=== PATIENT | male | born 1960 | race Caucasian/White ===

== ENCOUNTER 2018-02-04 11:45 | Day surgery (SDC) | payer BC, OTHER ==
[2018-02-01 08:41] VITALS: BMI 33.6
--- NOTE | 2018-02-04 07:28 | P.GSHP ---
History of Present Illness H&P Date: 02/04/18 CHIEF COMPLAINT: GERD and diverticulitis HISTORY OF PRESENT ILLNESS: The patient is a 57-year-old male who presents with gastroesophageal reflux disease and diverticulitis. Upper and lower endoscopy were offered for further evaluation and management. PAST MEDICAL HISTORY: Please see list. PAST SURGICAL HISTORY: Please see list. MEDICATIONS: Please see list. ALLERGIES: Please see list. SOCIAL HISTORY: No illicit drug use FAMILY HISTORY: No reports of Crohn disease or ulcerative colitis. REVIEW OF ORGAN SYSTEMS: CONSTITUTIONAL: No reports of fevers or chills. GI: Denies any blood in stools or constipation. PHYSICAL EXAM: VITAL SIGNS: Stable GENERAL: Well-developed pleasant in no acute distress. HEENT: No scleral icterus. Extraocular movements grossly intact. Moist buccal mucosa. NECK: Supple without lymphadenopathy. CHEST: Unlabored respirations. Equal bilateral excursions. CARDIOVASCULAR: Regular rate and rhythm. Distal 2+ pulses. ABDOMEN: Soft, nondistended. MUSCULOSKELETAL: No clubbing, cyanosis, or edema. ASSESSMENT: 1. Gastroesophageal reflux disease 2. Diverticulitis PLAN: 1. Recommend proceeding with an upper and lower endoscopy Past Medical History Past Medical History: Cancer, Chest Pain / Angina, GERD/Reflux, Hypertension, Osteoarthritis (OA) Additional Past Medical History / Comment(s): Hx testicular cancer, skin cancer , diverticulitis, "irregular heartbeat", recent episode of chest pain and was diagnosed with a hiatal hernia. History of Any Multi-Drug Resistant Organisms: None Reported Past Surgical History: Orthopedic Surgery Additional Past Surgical History / Comment(s): Right testicle removed, left knee surgery, left knee arthroscopy, right elbow surgery, skin cancer removed from back and scalp, COLONOSCOPY. Past Anesthesia/Blood Transfusion Reactions: No Reported Reaction Past Psychological History: No Psychological Hx Reported Smoking Status: Current every day smoker Past Alcohol Use History: Occasional Additional Past Alcohol Use History / Comment(s): Has been smoking for 15 yrs, down to 1-2 cigarettes per day. Past Drug Use History: None Reported - Past Family History Mother Family Medical History: No Reported History Medications and Allergies Home Medications Medication Instructions Recorded Confirmed Type Metoprolol Succinate (ER) [Toprol 50 mg PO QAM 07/25/15 02/01/18 History XL] Pantoprazole [Protonix] 40 mg PO DAILY 02/01/18 02/01/18 History metroNIDAZOLE [Flagyl] 500 mg PO Q8HR 02/01/18 02/01/18 History Allergies Allergy/AdvReac Type Severity Reaction Status Date / Time Penicillins Allergy Unknown Verified 02/01/18 08:28 Childhood
[~2018-02-04 11:45] MED LIST: LACTATED RINGERS 1,000 ML IV SCH
[2018-02-04] MEDS ORDERED: LIDOCAINE 1% 20 ML VIAL (10MG/ML) FOR IV START INTRADERMA ONE (12:10)
[2018-02-04 12:17] VITALS: RESP 16; TEMP 98.4
[2018-02-04] MEDS ORDERED: LIDOCAINE 1% INJ 10MG/ML (20 ML MDV) ONE (12:36)
[2018-02-04] MEDS ORDERED: PROPOFOL 10 MG/ML 20 ML VIAL IV ONE (12:36)
--- NOTE | 2018-02-04 13:21 | P.PCN ---
Date of Procedure: 02/04/18 Description of Procedure: PREOPERATIVE DIAGNOSIS: Gastroesophageal reflux disease. POSTOPERATIVE DIAGNOSIS: Gastritis. Gastroesophageal reflux disease. Duodenitis Erosive esophagitis Diaphragmatic hiatal hernia without obstruction. OPERATION: Esophagogastroduodenoscopy with biopsies along antrum, distal esophagus, and duodenum SURGEON: Lulu Fisher MD ANESTHESIA: MAC. INDICATIONS: The patient is a 57-year-old male who presents with a history of reflux disease. Benefits and risks of the procedure were described. Informed consent was obtained. DESCRIPTION: The patient was brought into the endoscopy suite and laid in the left lateral decubitus position. An Olympus gastroscope was passed along the posterior oropharynx down to the distal esophagus where the squamocolumnar junction was encountered at 40 cm from the incisors. The stomach was entered and no bile reflux was found. Additional findings are listed below. Biopsies with cold forceps were obtained of the antrum. The first through third portion of the duodenum was examined and unremarkable. Retroflexion of the scope confirmed Hill grade 4 lower esophageal valve. The squamocolumnar junction demonstrated acute LA grade C erosive esophagitis. The stomach was desufflated. The patient tolerated the procedure well. FINDINGS: Squamocolumnar junction 40 cm from the incisors. Diaphragmatic hiatus at 40 cm. Hill grade 4 lower esophageal valve. LA grade C erosive esophagitis. Active duodenitis Active gastritis Severe erosive esophagitis RECOMMENDATIONS: Start medical therapy. Further recommendations pending results of pathology report. Upper endoscopy as needed. Will benefit from antireflux surgical procedure
[2018-02-04 13:24] VITALS: BP 114/78; PULSE 60
--- NOTE | 2018-02-04 13:25 | P.PCN ---
Date of Procedure: 02/04/18 Description of Procedure: PREOPERATIVE DIAGNOSIS: Diverticulitis Change in bowel habits POSTOPERATIVE DIAGNOSIS: Diverticulitis Change in bowel habits Rectal adenoma Sigmoid colon polyp Diverticulosis at sigmoid colon History of sigmoid colectomy OPERATION: Colonoscopy to the ileocecal valve and appendiceal orifice. Colonoscopy with hot snare polypectomies Colonoscopy with cold forceps biopsies. SURGEON: Lulu Fisher MD. ANESTHESIA: MAC. INDICATIONS: The patient is a 57-year-old male who presents with symptomatic diverticulitis. Benefits and risks were described and informed consent was obtained. DESCRIPTION OF PROCEDURE: The patient had undergone Gatorade, MiraLAX and Dulcolax prep. He had been brought into the operating room and laid in the left lateral decubitus position. After adequate intravenous sedation, the rectum was examined with 2% lidocaine jelly. No external hemorrhoids were encountered. The rectal tone was within normal limits. No lesions were palpated in the rectal vault. An Olympus colonoscope was advanced until the ileocecal valve and appendiceal orifice were clearly viewed. The prep was fair requiring moderate irrigation to visualize the mucosal harden. At 20 cm from the anal verge, a remnant sigmoid diverticulosis pocket was found along his previous anastomosis without diverticulitis. Colonic polyps were found and cold forcep biopsy or snare polypectomy. No evidence of focal colitis was found. Retroflexion of the scope demonstrated grade 1 internal hemorrhoids without active bleeding or inflammation. The colon was desufflated. The patient had tolerated the procedure well. Withdrawal time was over 6 minutes. FINDINGS: Internal hemorrhoids, grade 1 No external hemorrhoids No arteriovenous malformations At 20 cm from the anal verge, a remnant sigmoid diverticulosis pocket was found along his previous anastomosis without diverticulitis. Removal of 2 polyps: - Snare polypectomy 10 cm from the anal verge, 5 mm tubulovillous adenoma polyp. - Cold forceps biopsy at 30 cm from the anal verge, 4 mm polyp. No focal colitis. RECOMMENDATIONS: Repeat colonoscopy 5 years, 2022 Plan - Discharge Summary New Discharge Prescriptions: No Action Metoprolol Succinate (ER) [Toprol XL] 50 mg PO QAM metroNIDAZOLE [Flagyl] 500 mg PO Q8HR Pantoprazole [Protonix] 40 mg PO DAILY Discharge Medication List Metoprolol Succinate (ER) [Toprol XL] 50 mg PO QAM 07/25/15 [History] Pantoprazole [Protonix] 40 mg PO DAILY 02/01/18 [History] metroNIDAZOLE [Flagyl] 500 mg PO Q8HR 02/01/18 [History] Patient Instructions/Handouts: *[facility] - (Anesthesia) Endoscopy Discharge Instructions, Colonoscopy (GEN), Diverticulosis (GEN), Upper Endoscopy (GEN), Colorectal Polyps (GEN) Discharge Disposition: HOME SELF-CARE
--- NOTE | 2018-02-08 14:22 | CDI ---
Date:02/08/18 CDS/Lpta Name: Camila Vale Phone: If any questions, call Priscilla Ram[facility] at [phone] Patient Name: Be Vital Admit Date: 02/04/18 Discharge Date: 02/05/08 ATTENTION: The [facility] Staff appreciate your assistance in clarifying documentation. Please respond to the clarification below the line at the bottom and electronically sign. The [facility] staff will review the response and follow-up if needed. Please note: Queries are made part of the Legal Health Record. If you have any questions, please contact the [facility] Check Out. Dear Dr. Fisher, Please provide clarification as to the location of the polyps removed. Please clarify the specific location of the polyps removed, Sigmoid colon, transverse colon, descending colon, etc. Thank you for your kind consideration. PREOPERATIVE DIAGNOSIS: Diverticulitis Change in bowel habits POSTOPERATIVE DIAGNOSIS: Diverticulitis Change in bowel habits Rectal adenoma Sigmoid colon polyp Diverticulosis at sigmoid colon History of sigmoid colectomy Please see in post-op diagnosis that addresses location of polyps. KM 02/08/18 @21:36 MTDD
== END 2018-02-04 14:01 | disposition home or self-care (01) ==
LOC: ORWHC2ENDO 11:45
PROVIDERS: ATTEND Surgery Plastic and Reconstructive Surgery
DX: K29.50 Unspecified chronic gastritis without bleeding (principal); K20.0 Eosinophilic esophagitis; K21.9 Gastro-esophageal reflux disease without esophagitis; K29.80 Duodenitis without bleeding; K44.9 Diaphragmatic hernia without obstruction or gangrene; D12.8 Benign neoplasm of rectum; K63.5 Polyp of colon; K57.30 Diverticulosis of large intestine without perforation or abscess without bleeding; K64.0 First degree hemorrhoids; Z98.0 Intestinal bypass and anastomosis status; I10 Essential (primary) hypertension; M19.90 Unspecified osteoarthritis, unspecified site; F17.210 Nicotine dependence, cigarettes, uncomplicated; Z90.79 Acquired absence of other genital organ(s); Z85.47 Personal history of malignant neoplasm of testis; Z79.2 Long term (current) use of antibiotics; Z79.899 Other long term (current) drug therapy; Z88.0 Allergy status to penicillin
CPT/HCPCS: 88305; 45380; 45385; 43239; J2001; J2704

== ENCOUNTER → 2018-02-25 | Outpatient (CLI) | payer OTHER ==
--- NOTE | 2018-02-25 15:06 | NM ---
EXAMINATION TYPE: NM hepatobiliary w EF DATE OF EXAM: 02/25/2018 COMPARISON: NONE HISTORY: Pain TECHNIQUE: After the intravenous administration of 5.08 mCi Tc 99m Mebrofenin hepatobiliary scintigra phy is performed. Immediate images post injection. FINDINGS: There is satisfactory initial accumulation of tracer by the liver. The gallbladder is visualized wit hin 12 minutes. The small bowel activity is noted within 12 minutes. At one hour 8 ounces of oral e nsure plus is given to mimic CCK and gallbladder ejection fraction is calculated at 88% %. IMPRESSION: Gallbladder ejection fraction suggests hypercontractile state.
== END | disposition home or self-care (01) ==
LOC: RADNMMAIN 12:50
PROVIDERS: ATTEND Surgery Plastic and Reconstructive Surgery
DX: K81.9 Cholecystitis, unspecified (principal); Z88.0 Allergy status to penicillin
CPT/HCPCS: 78226; A9537

== ENCOUNTER → 2018-05-05 | Outpatient (CLI) | payer OTHER ==
[2018-05-05 14:38] LABS: HCT 48.9 % (39.0-53.0); HGB 16.6 gm/dL (13.0-17.5); MCH 31.6 pg (25.0-35.0); MCHC 33.9 g/dL (31.0-37.0); MCV 93.1 fL (80.0-100.0); Platelet Count 193 k/uL (150-450); RBC 5.25 m/uL (4.30-5.90); RDW 12.7 % (11.5-15.5); WBC 7.3 k/uL (3.8-10.6)
== END ==
LOC: LABPAT 13:24
PROVIDERS: ATTEND Anesthesiology
DX: Z01.812 Encounter for preprocedural laboratory examination (principal); K44.9 Diaphragmatic hernia without obstruction or gangrene
CPT/HCPCS: 36415; 85027

== ENCOUNTER 2018-05-12 10:32 | Inpatient (IN) | payer OTHER ==
[2018-05-05 08:41] VITALS: BMI 33.6
--- NOTE | 2018-05-12 05:22 | P.GSHP ---
History of Present Illness H&P Date: 05/12/18 CHIEF COMPLAINT: Hiatal hernia with gastroesophageal reflux disease. HISTORY OF PRESENT ILLNESS: The patient is a 57-year-old male who presents with hiatal hernia. He has completed an esophageal manometry including upper endoscopy workup. Now he presents for surgical intervention. PAST MEDICAL HISTORY: Please see list. PAST SURGICAL HISTORY: Please see list. MEDICATIONS: Please see list. ALLERGIES: Please see list. SOCIAL HISTORY: No illicit drug use FAMILY HISTORY: No reports of Crohn disease or ulcerative colitis. REVIEW OF ORGAN SYSTEMS: CONSTITUTIONAL: No reports of fevers or chills. GI: Denies any blood in stools or constipation. PHYSICAL EXAM: VITAL SIGNS: Stable GENERAL: Well-developed pleasant and in no acute distress. HEENT: No scleral icterus. Extraocular movements grossly intact. Moist buccal mucosa. NECK: Supple without lymphadenopathy. CHEST: Unlabored respirations. Equal bilateral excursions. CARDIOVASCULAR: Regular rate and rhythm. Distal 2+ pulses. ABDOMEN: Soft, nondistended. No peritoneal signs. MUSCULOSKELETAL: No clubbing, cyanosis, or edema. SKIN: Well-perfused. Good skin turgor. MANOMETRY: Shows no evidence of achalasia or scleroderma. ASSESSMENT: 1. Diaphragmatic hiatal hernia with severe gastroesophageal reflux disease. PLAN: 1. Recommend proceeding with a robotic paraesophageal hiatal hernia with possible Yue and mesh placement. 2. Benefits and risks of surgical intervention was discussed including possibility of open technique. 3. Inpatient hospitalization recommended of 2 nights 4. DVT prophylaxis. 5. Antibiotic prophylaxis. Past Medical History Past Medical History: Cancer, Chest Pain / Angina, GERD/Reflux, Hypertension, Osteoarthritis (OA) Additional Past Medical History / Comment(s): Hx testicular cancer, skin cancer , diverticulitis, "irregular heartbeat", recent episode of chest pain and was diagnosed with a hiatal hernia. History of Any Multi-Drug Resistant Organisms: None Reported Past Surgical History: Orthopedic Surgery Additional Past Surgical History / Comment(s): Right testicle removed, left knee surgery, left knee arthroscopy, right elbow surgery, skin cancer removed from back and scalp, COLONOSCOPY., EGD Past Anesthesia/Blood Transfusion Reactions: No Reported Reaction Smoking Status: Current every day smoker - Past Family History Mother Family Medical History: No Reported History Medications and Allergies Home Medications Medication Instructions Recorded Confirmed Type Metoprolol Succinate (ER) [Toprol 50 mg PO QAM 07/25/15 05/05/18 History XL] Allergies Allergy/AdvReac Type Severity Reaction Status Date / Time Penicillins Allergy Unknown Verified 02/04/18 12:00 Childhood
[~2018-05-12 10:32] MED LIST changes: +DEXAMETHASONE SOD PHOSPHATE 10 MG/ML 1 ML VIAL IV ONE; +HEPARIN SODIUM,PORCINE 5,000 UNIT/ML 1 ML VIAL SQ ONE; +HYDROmorphone 0.5 MG/0.5 ML SYRINGE IVP PRN; -LACTATED RINGERS 1,000 ML IV SCH; +LIDOCAINE 1% 20 ML VIAL (10MG/ML) FOR IV START INTRADERMA PRN; +MIDAZOLAM 2 MG/2 ML VIAL IV PRN; +ONDANSETRON 4 MG/2 ML VIAL IVP ONE; +SCOPOLAMINE 1.5MG/72HR PATCH TRANSDERM ONE; +ceFAZolin IN SWFI 2 GM/20 ML SYRINGE IVP ONE
[2018-05-12 11:15] VITALS: RESP 16
[2018-05-12] MEDS: LACTATED RINGERS 1,000 ML IV SCH ×2 (11:33→15:51)
[2018-05-12 11:40] LABS: Albumin 4.1 g/dL (3.5-5.0); Calcium 9.5 mg/dL (8.4-10.2); Potassium 4.7 mmol/L (3.5-5.1); Total Bilirubin 0.4 mg/dL (0.2-1.3); Total Protein 6.9 g/dL (6.3-8.2)
[2018-05-12] MEDS ORDERED: ROCURONIUM BROMIDE 10 MG/ML 10 ML VIAL IV ONE (12:20)
[2018-05-12] MEDS ORDERED: ceFAZolin IN SWFI 2 GM/20 ML SYRINGE IVP ONE (12:20)
[2018-05-12] MEDS ORDERED: ePHEDrine SULFATE/0.9% NACL/PF 50 MG/5 ML SYRINGE IV ONE (12:20)
[2018-05-12] MEDS ORDERED: PROPOFOL 10 MG/ML 20 ML VIAL IV ONE (12:20)
[2018-05-12] MEDS ORDERED: MIDAZOLAM 2 MG/2 ML VIAL ONE (12:20)
[2018-05-12] MEDS ORDERED: LIDOCAINE 1% INJ 10MG/ML (20 ML MDV) ONE (12:20)
[2018-05-12] MEDS ORDERED: GLYCOPYRROLATE 0.2 MG/ML 2 ML VIAL ONE (12:20)
[2018-05-12] MEDS ORDERED: SUCCINYLCHOLINE CHLORIDE 100 MG/5 ML SYR IV ONE (12:20)
[2018-05-12] MEDS ORDERED: KETOROLAC 30 MG/ML 1 ML VIAL ONE (12:20)
[2018-05-12] MEDS ORDERED: NEOSTIGMINE 1 MG/ML 10 ML VIAL ONE (12:20)
[2018-05-12] MEDS ORDERED: fentaNYL (PF) 50 MCG/ML 2 ML AMP ONE (12:20)
[2018-05-12] MEDS ORDERED: BUPIVACAIN-EPI 0.25%-1:200,000 30 ML VIAL SQ ONE (12:37)
[2018-05-12] MEDS ORDERED: LACTATED RINGERS 1,000 ML IV ONE (13:15)
[2018-05-12] MEDS ORDERED: NALOXONE 0.4 MG/ML 1 ML VIAL IV PRN (14:57)
[2018-05-12] MEDS ORDERED: ACETAMINOPHEN IV (For NPO) 1,000 MG in EMPTY BAG 1 BAG IVPB ONE (14:57)
[2018-05-12] MEDS ORDERED: HYDROcodone/APAP 15 ML SOLUTION PO PRN (14:57)
[2018-05-12] MEDS ORDERED: diphenhydrAMINE 50 MG/ML 1 ML VIAL IVP PRN (14:57)
--- NOTE | 2018-05-12 15:04 | P.OP ---
Date of Procedure: 05/12/18 Description of Procedure: SURGEON: DOMINGO WHELAN MD PREOPERATIVE DIAGNOSES: 1. Gastroesophageal reflux disease. 2. Paraesophageal hiatal hernia, midline. 3. Epigastric abdominal pain 4. Hypertensive heart disease 5. Personal history of sigmoid diverticulitis 6. Angina POSTOPERATIVE DIAGNOSES: 1. Gastroesophageal reflux disease. 2. Paraesophageal hiatal hernia, midline, incarcerated 4 x 4 cm 3. Epigastric abdominal pain 4. Hypertensive heart disease 5. Personal history of sigmoid diverticulitis 6. Angina OPERATION: 1. Robotic-assisted da Bakari Xi laparoscopic reduction and repair of incarcerated midline diaphragmatic paraesophageal hiatal hernia, 4 x 4 cm, with [place] Biopatch A 8 x 8 cm. 2. Intraoperative esophagogastroduodenoscopy ANESTHESIA: General with local anesthetic. ESTIMATED BLOOD LOSS: 5 mL SPECIMENS REMOVED: None. COMPLICATIONS: None. FINDINGS: 1. Hiatal hernia, 4 x 4 cm 2. 4 x 4 cm paraesophageal incarcerated diaphragmatic hiatal hernia 3. [place] Biopatch A onlay mesh placed. 4. Intra-abdominal esophageal length 2 cm obtained INDICATIONS: The patient is a 57-year-old male who presents with gastroesophageal reflux disease from a symptomatic diaphragmatic hiatal hernia. Preoperative workup including upper endoscopy demonstrated a Hill grade 4 lower esophageal valve. He completed an esophageal manometry. Given the severity of symptoms, he had elected for surgical intervention. Benefits and risks including bleeding, infection, recurrence, dysphagia, injury to the lung, need for further surgery was described at length. Informed consent was obtained. DESCRIPTION: The patient was brought into the operating room and placed in supine position. Preoperatively he had received heparin subcutaneously for DVT prophylaxis. After general induction, the abdomen was prepped and draped in standard sterile fashion. The patient had previously voided prior to coming to the operating room. Ioban draping was placed along the abdomen. A timeout protocol was confirmed with the surgical team, for which the patient's name, procedure to be performed including DVT prophylaxis with bilateral SCDs, and preoperative antibiotics were also confirmed. A robotic da Bakari Xi system was prepped and primed. At 15 cm from the xiphoid to just below the umbilicus, proposed port sites were marked with indelible marker along the left axillary line, left mid-clavicular line with each ports were marked 10 cm from each other. A 5 mm 0 degrees laparoscopic trocar entry was performed along the left upper quadrant. The abdomen was insufflated to 15 mmHg pressure he tolerated well. Diagnostic laparoscopy demonstrated no injury to bowel, viscera, or mesentery. The liver surface was unremarkable for fatty liver disease. No injury had occurred to the small bowel or viscera. Next, one 8 mm robotic port was placed along the right upper abdomen. An 8-mm port was were placed along the left lateral abdominal wall. The camera 8-mm port was maintained along the epigastrium via the hernia defect. Another 12 mm port was placed along the left upper abdominal wall after exchanging the 5 mm port. Please note that the ports were placed at least 20 cm away from the target anatomy. Care was taken to check that each robotic arm were safely away from collision with the bed or the patient. At the epigastrium, a medium sized Geovanni liver retractor was placed under direct visualization with the Iron Director Ehs placed under the right shoulder of the patient. All robotic arms were used. The patient was repositioned in reverse Trendelenburg position at 14-degrees after lowering the bed. The robot was docked above the left side of the patient. Using a grasper for arm 3, a grasper for arm 1, including vessel sealer for arm 2, the robotic system was docked and primed as described. Instruments were interchanged by the logging assistant. I had sat at the console. The gastrohepatic ligament was cleaved using a vessel sealer. Next, the phrenoesophageal ligament was mobilized and the distal esophagus was mobilized circumferentially. The left and right crura was identified. The hiatal hernia sac was incarcerated into the mediastinum. Circumferentially, the hernia sac was dissected free from the hiatus with reduction of the proximal pole the stomach into the abdominal cavity. Care was taken to avoid any gastrotomy to the upper pole of the stomach. The measured defect was consistent with 4 cm axial length and 4 cm in width. After dissection, the distal esophagus of over 2 cm was brought into the abdominal cavity. Once the hiatus and crura was dissected, 2-0 VLOC suture was placed to reapproximate the diaphragmatic hiatus anteriorly. To buttress the repair, a [place] Biopatch A was prepared along the back table and cut in half of a luevano-hole fashion as to reinforce the repair as an underlay. The mesh was placed along the crural repair and tagged using horizontal mattress sutures using 2-0 VLOC. I went to the head of the bed to perform intraoperative esophagogastroduodenoscopy. I went to the head of the bed to perform intraoperative esophagogastroduodenoscopy. An Olympus gastroscope was passed through posterior oropharynx. Erosive esophagitis LA grade A was confirmed. The stomach was entered. Retroflexion of the scope confirmed a Hill grade 1 lower esophageal valve. The stomach had been desufflated. No evidence of leaks were found either of the mucosal defects of the esophagus or stomach. This concluded the endoscopic portion of the case. The robot was undocked from the patient. I re-scrubbed into the case. All instruments and pneumoperitoneum were evacuated from the abdominal cavity. Incisions were reapproximated using 4-0 Monocryl in an interrupted subcuticular fashion. Liquid glue was applied to the skin. Local anesthetic was infiltrated in all wounds for postop analgesia. Multiple intra-abdominal films were obtained. At the end of the procedure, needle, sponge, and instrument count was verified correct by the dental service technician. The patient had tolerated the procedure well and was taken to the postanesthesia unit in stable condition. Intraoperative films were reviewed with the patient's family who was pleased with the level of care. Console time 59 minutes
[2018-05-12] MEDS: HYDROmorphone 1 MG/ML 1 ML SYRINGE IVP PRN ×3 (15:31→23:34)
[2018-05-12] MEDS: 0.9% NACL WITH KCL 20 MEQ/L 1,000 ML IV SCH (15:32)
[2018-05-12] MEDS: ALBUTEROL NEBULIZED 2.5 MG/3 ML INHALATION SCH ×2 (16:39→21:12)
--- NOTE | 2018-05-12 17:19 | P.PN ---
Progress Note - Text Progress Note Date: 05/12/18 Patient seen and evaluated postop and is doing very well. Post discharge instructions reviewed with discharge after esophogram and follow-up in the office next week Wednesday.
[2018-05-12] MEDS: METOCLOPRAMIDE 5 MG/ML 2 ML VIAL IVP SCH (17:49)
[2018-05-12] MEDS: KETOROLAC 30 MG/ML 1 ML VIAL IVP SCH (17:49)
[2018-05-12] MEDS: SIMETHICONE 40 MG/0.6 ML DROPS 2,000 MG/30 ML BOTTLE PO SCH (17:50)
[2018-05-12] MEDS: ONDANSETRON 4 MG/2 ML VIAL IVP SCH (17:50)
[2018-05-13] MEDS: KETOROLAC 30 MG/ML 1 ML VIAL IVP SCH ×3 (02:03→13:50)
[2018-05-13] MEDS: ONDANSETRON 4 MG/2 ML VIAL IVP SCH ×3 (02:04→12:07)
[2018-05-13] MEDS: METOCLOPRAMIDE 5 MG/ML 2 ML VIAL IVP SCH ×3 (02:04→13:50)
[2018-05-13] MEDS: SIMETHICONE 40 MG/0.6 ML DROPS 2,000 MG/30 ML BOTTLE PO SCH ×3 (02:05→13:50)
[2018-05-13] MEDS: 0.9% NACL WITH KCL 20 MEQ/L 1,000 ML IV SCH ×2 (02:24→10:03)
[2018-05-13] MEDS: HYDROmorphone 1 MG/ML 1 ML SYRINGE IVP PRN (04:21)
[2018-05-13] MEDS ORDERED: 0.9% NACL WITH KCL 20 MEQ/L 1,000 ML IV SCH (08:00)
[2018-05-13] MEDS ORDERED: PANTOPRAZOLE 40 MG/10 ML VIAL IV SCH (09:00)
[2018-05-13] MEDS ORDERED: METOPROLOL SUCCINATE (ER) 50 MG TAB.ER.24H PO SCH (09:00)
[2018-05-13] MEDS ORDERED: ENOXAPARIN 40 MG/0.4 ML SYRINGE SQ SCH (09:00)
[2018-05-13] MEDS: ALBUTEROL NEBULIZED 2.5 MG/3 ML INHALATION SCH ×3 (09:30→15:55)
[2018-05-13 10:15] LABS: Anion Gap 7 mmol/L; Blood Urea Nitrogen 15 mg/dL (9-20); Calcium 8.4 mg/dL (8.4-10.2); Carbon Dioxide 23 mmol/L (22-30); Chloride 106 mmol/L (98-107); Magnesium 1.7 mg/dL (1.6-2.3); Phosphorus 3.3 mg/dL (2.5-4.5); Potassium 4.6 mmol/L (3.5-5.1); Sodium 136 mmol/L (137-145)
[2018-05-13 10:16] LABS: Basophils % (A) 0 %; Eosinophils % (A) 0 %; HCT 38.9 % (39.0-53.0); Lymphocytes # (A) 1.3 k/uL (1.0-4.8); Lymphocytes % (A) 14 %; MCH 31.7 pg (25.0-35.0); MCHC 33.3 g/dL (31.0-37.0); Mean Platelet Volume 8.2; Monocytes # (A) 0.7 k/uL (0-1.0); Monocytes % (A) 7 %; Neutrophils # (A) 7.3 k/uL (1.3-7.7); Neutrophils % (A) 77 %; Platelet Count 161 k/uL (150-450); RBC 4.09 m/uL (4.30-5.90); WBC 9.5 k/uL (3.8-10.6)
[2018-05-13] MEDS ORDERED: diphenhydrAMINE 25 MG CAP PO PRN (13:12)
[2018-05-13 14:41] VITALS: TEMP 98
[2018-05-13 14:46] VITALS: BP 110/70; PULSE 56
--- NOTE | 2018-05-13 15:02 | FL ---
EXAMINATION TYPE: FL esophagus cervic/pharynx DATE OF EXAM: 05/13/2018 HISTORY: Post David fundoplication COMPARISON: NONE TECHNIQUE: Single contrast Isovue 300 FINDINGS: Overhead radiographs were obtained. No free air is evident. No suspicious extravasation is evident FL Fluoroscopy: Real-time observation was performed. At the gastroesophageal junction has mild chest since the passing into the stomach. No suspicious stenosis is evident. No hiatal hernia is evident. IMPRESSION: 1. Mild hesitancy passing through the David fundoplication. 2. No suspicious changes to suggest extravasation.
[2018-05-14] MEDS ORDERED: BISACODYL 5 MG TABLET.DR PO PRN (08:00)
--- NOTE | 2018-05-14 19:05 | P.DS ---
Providers Date of admission: 05/12/18 10:32 Expected date of discharge: 05/13/18 Attending physician: Lulu Fisher Primary care physician: Amirah El - Discharge Diagnosis(es) (1) Gastroesophageal reflux disease due to diaphragmatic hernia Status: Acute (2) Hypertensive heart disease Status: Acute (3) Hiatal hernia Status: Acute Hospital Course: POSTOPERATIVE DIAGNOSES: 1. Gastroesophageal reflux disease. 2. Paraesophageal hiatal hernia, midline, incarcerated 4 x 4 cm 3. Epigastric abdominal pain 4. Hypertensive heart disease 5. Personal history of sigmoid diverticulitis 6. Angina COURSE: The patient is a 57-year-old male who presents with gastroesophageal reflux disease from a symptomatic diaphragmatic hiatal hernia. Preoperative workup including upper endoscopy demonstrated a Hill grade 4 lower esophageal valve. He completed an esophageal manometry. Given the severity of symptoms, he had elected for surgical intervention. Benefits and risks including bleeding, infection, recurrence, dysphagia, injury to the lung, need for further surgery was described at length. Informed consent was obtained. Postprocedure, he has been tolerating diet. Denies any nausea and vomiting. Pain was well-controlled. Post discharge diet reviewed including liquid only. No straws or carbonated beverages advised. Follow-up in the office in 5 days. Pertinent Studies: Esophagram negative for leaks or acute obstruction Procedures: OPERATION: 1. Robotic-assisted da Bakari Xi laparoscopic reduction and repair of incarcerated midline diaphragmatic paraesophageal hiatal hernia, 4 x 4 cm, with [place] Biopatch A 8 x 8 cm. 2. Intraoperative esophagogastroduodenoscopy ANESTHESIA: General with local anesthetic. ESTIMATED BLOOD LOSS: 5 mL SPECIMENS REMOVED: None. COMPLICATIONS: None. FINDINGS: 1. Hiatal hernia, 4 x 4 cm 2. 4 x 4 cm paraesophageal incarcerated diaphragmatic hiatal hernia 3. [place] Biopatch A onlay mesh placed. 4. Intra-abdominal esophageal length 2 cm obtained Patient Condition at Discharge: Stable Plan - Discharge Summary Discharge Rx Participant: Yes New Discharge Prescriptions: New HYDROcodone/APAP 5-325MG [[place] 5-325] 1 tab PO Q6HR PRN 3 Days #12 tab PRN Reason: Pain Simethicone 40 mg/0.6 ml Drops [Mylicon Drops] 40 mg PO Q6HR PRN #30 ml PRN Reason: Abdominal Distention No Action Metoprolol Succinate (ER) [Toprol XL] 50 mg PO QAM Discharge Medication List Metoprolol Succinate (ER) [Toprol XL] 50 mg PO QAM 07/25/15 [History] HYDROcodone/APAP 5-325MG [[place] 5-325] 1 tab PO Q6HR PRN 3 Days #12 tab [Rx] Simethicone 40 mg/0.6 ml Drops [Mylicon Drops] 40 mg PO Q6HR PRN #30 ml [Rx] Follow up Appointment(s)/Referral(s): Lulu Fisher MD [STAFF PHYSICIAN] - 05/17/18 4:15 am Patient Instructions/Handouts: Laparoscopic Hiatal Hernia Repair (DC) Activity/Diet/Wound Care/Special Instructions: May shower. No bath tub soaks. No straws. No carbonated beverages. Liquid diet only for 2 weeks. No lifting over 4 pounds in 4 weeks. Protein shakes 3 times daily. Discharge Disposition: HOME SELF-CARE
== END 2018-05-13 17:02 | disposition home or self-care (01) | DRG 327 ==
LOC: 2ORMAIN 10:32 → 4SSUR 14:17
PROVIDERS: ADMIT Surgery Plastic and Reconstructive Surgery; ATTEND Surgery Plastic and Reconstructive Surgery
PROC: 8E0W4CZ Robotic Assisted Procedure of Trunk Region, Percutaneous Endoscopic Approach (ICD-10-PCS; 2018-05-12)
PROC: 0DJ08ZZ Inspection of Upper Intestinal Tract, Via Natural or Artificial Opening Endoscopic (ICD-10-PCS; 2018-05-12)
PROC: 0BUT4JZ Supplement Diaphragm with Synthetic Substitute, Percutaneous Endoscopic Approach (ICD-10-PCS; principal; 2018-05-12 12:15)
DX: K44.0 Diaphragmatic hernia with obstruction, without gangrene (principal); K22.10 Ulcer of esophagus without bleeding; F17.210 Nicotine dependence, cigarettes, uncomplicated; I11.9 Hypertensive heart disease without heart failure; I20.9 Angina pectoris, unspecified; K21.9 Gastro-esophageal reflux disease without esophagitis; Z85.47 Personal history of malignant neoplasm of testis; Z85.828 Personal history of other malignant neoplasm of skin; Z90.79 Acquired absence of other genital organ(s); Z87.19 Personal history of other diseases of the digestive system; Z88.0 Allergy status to penicillin
CPT/HCPCS: 74210; 80051; 80053; 82310; 82565; 83735; 84100; 84520; 85025; 94640; 94760; 94762

== ENCOUNTER → 2019-08-03 | Outpatient (CLI) | payer OTHER ==
--- NOTE | 2019-08-03 12:58 | XR ---
EXAMINATION TYPE: XR hand complete RT DATE OF EXAM: 08/03/2019 CLINICAL HISTORY: Crushing injury to third and fourth fingers were obtained. TECHNIQUE: Frontal, lateral and oblique images of the right hand are obtained. COMPARISON: None. FINDINGS: There is no acute fracture/dislocation evident in the right hand. Mild narrowing throughou t the fingers involving PIP and DIP joints. There is sparing of MCP joints. The overlying soft tissu e appears unremarkable. IMPRESSION: There is no acute fracture or dislocation in the right hand.
== END | disposition home or self-care (01) ==
LOC: RADXRMAIN 12:40
PROVIDERS: ATTEND Emergency Medicine
DX: S67.21XA Crushing injury of right hand, initial encounter (principal)

== ENCOUNTER → 2020-02-19 | Outpatient (CLI) | payer BC ==
--- NOTE | 2020-02-19 08:39 | CT ---
EXAMINATION TYPE: CT brain wo con DATE OF EXAM: 02/19/2020 COMPARISON: 07/25/2015 HISTORY: Cervical muscle strain, abnormalities of gait and mobility CT DLP: 978.[address] of the brain was performed. The ventricles, basal cisterns and sulci overlying the cerebral convexities demonstrate mild enlargem ent. There is no evidence for intracranial hemorrhage or sulcal effacement. There is decreased attenuation about the periventricular white matter and deep white matter of both c erebral hemispheres, compatible with chronic small vessel ischemia. Differential diagnosis does inclu de demyelination. No mass effects are seen.No midline shift. Osseous calvarium is intact. If symptoms persist consider MRI. IMPRESSION: 1. Age related atrophic and chronic small vessel ischemic change without acute intracranial process s een at this time.
== END | disposition home or self-care (01) ==
LOC: RADCTMAIN 08:07
PROVIDERS: ATTEND Family Medicine
DX: R26.9 Unspecified abnormalities of gait and mobility (principal); I67.82 Cerebral ischemia; G31.1 Senile degeneration of brain, not elsewhere classified
CPT/HCPCS: 70450

== ENCOUNTER → 2021-07-17 | Outpatient (CLI) | payer BC | END | disposition home or self-care (01) | LOC: LABPAT 12:28 | PROVIDERS: ATTEND Orthopaedic Surgery Hand Surgery | DX: Z01.812 Encounter for preprocedural laboratory examination (principal) | CPT/HCPCS: 87070 ==

== ENCOUNTER 2021-07-28 09:41 | Observation (INO) | payer BC ==
[2021-07-22 17:11] VITALS: BMI 28.1
[~2021-07-28 09:41] MED LIST changes: -DEXAMETHASONE SOD PHOSPHATE 10 MG/ML 1 ML VIAL IV ONE; +DEXAMETHASONE SOD PHOSPHATE 4 MG/ML 1 ML VIAL IV ONE; -HEPARIN SODIUM,PORCINE 5,000 UNIT/ML 1 ML VIAL SQ ONE; -HYDROmorphone 0.5 MG/0.5 ML SYRINGE IVP PRN; +LIDOCAINE 1% (10MG/ML) FOR IV START INTRADERMA PRN; -LIDOCAINE 1% 20 ML VIAL (10MG/ML) FOR IV START INTRADERMA PRN; -MIDAZOLAM 2 MG/2 ML VIAL IV PRN; +MORPHINE SULFATE 4 MG/ML SYRINGE IV PRN; -ceFAZolin IN SWFI 2 GM/20 ML SYRINGE IVP ONE
[2021-07-28] MEDS ORDERED: TRANEXAMIC ACID 1,000 MG in SODIUM CHLORIDE 0.9% 100 ML IVPB ONE ×2 (10:23→10:24)
[2021-07-28] MEDS: LACTATED RINGERS 1,000 ML IV SCH (10:27)
[2021-07-28 11:00] LABS: Basophils % (A) 1 %; Eosinophils # (A) 0.1 k/uL (0-0.7); Eosinophils % (A) 2 %; HCT 39.5 % (39.0-53.0); HGB 13.6 gm/dL (13.0-17.5); Lymphocytes # (A) 1.7 k/uL (1.0-4.8); Lymphocytes % (A) 25 %; MCH 31.7 pg (25.0-35.0); MCHC 34.4 g/dL (31.0-37.0); Mean Platelet Volume 7.6; Monocytes # (A) 0.5 k/uL (0-1.0); Monocytes % (A) 7 %; Neutrophils % (A) 62 %; Platelet Count 260 k/uL (150-450); RBC 4.29 m/uL (4.30-5.90); RDW 12.6 % (11.5-15.5); WBC 6.5 k/uL (3.8-10.6)
[2021-07-28 11:03] LABS: Albumin 3.6 g/dL (3.5-5.0); Calcium 9.4 mg/dL (8.4-10.2); Potassium 4.5 mmol/L (3.5-5.1); Total Bilirubin 0.4 mg/dL (0.2-1.3); Total Protein 6.3 g/dL (6.3-8.2)
[2021-07-28] MEDS ORDERED: fentaNYL (PF) 50 MCG/ML 2 ML AMP IVP ONE (11:12)
[2021-07-28] MEDS ORDERED: MIDAZOLAM 2 MG/2 ML VIAL IVP ONE (11:12)
[2021-07-28] MEDS ORDERED: PROPOFOL 10 MG/ML 20 ML VIAL IV ONE (11:44)
[2021-07-28] MEDS ORDERED: NEOSTIGMINE 1 MG/ML 10 ML VIAL ONE (11:44)
[2021-07-28] MEDS ORDERED: ROPIVACAINE 5 MG/ML 30 ML VIAL ONE (11:44)
[2021-07-28] MEDS ORDERED: fentaNYL (PF) 50 MCG/ML 2 ML AMP ONE (11:44)
[2021-07-28] MEDS ORDERED: GLYCOPYRROLATE 0.2 MG/ML 2 ML VIAL ONE (11:44)
[2021-07-28] MEDS ORDERED: SODIUM CHLORIDE 0.9% 100 ML BAG ONE ×2 (11:44)
[2021-07-28] MEDS ORDERED: ceFAZolin 1,000 MG VIAL ONE (11:44)
[2021-07-28] MEDS ORDERED: TRANEXAMIC ACID 1,000 MG/10 ML VIAL ONE (11:44)
[2021-07-28] MEDS ORDERED: SUCCINYLCHOLINE CHLORIDE 100 MG/5 ML SYR IV ONE (11:44)
[2021-07-28] MEDS ORDERED: MIDAZOLAM 2 MG/2 ML VIAL ONE (11:44)
[2021-07-28] MEDS ORDERED: ROCURONIUM 10 MG/ML (5 ML VIAL) IV ONE (11:44)
[2021-07-28] MEDS ORDERED: LIDOCAINE 1% INJ 10MG/ML (20 ML MDV) ONE (11:44)
--- NOTE | 2021-07-28 13:35 | P.ANPRN ---
Procedure Note - Anesthesia - Nerve Block Performed Right Supraclavicular Time Out Performed: Yes (:11) Date of Procedure: 07/28/21 Procedure Start Time: Procedure Stop Time: Location of Patient: PreOp Indication: Acute Post-Operative Pain, Requested by Surgeon (Dr Pacheco) Sedation Type: Sedate with meaningful contact maintained Preparation: Sterile Prep Position: Supine Catheter: None Needle Types: Pajunk Needle Gauge: Other (see comment) (22g) Ultrasound used to visualize needle placement: Yes Ultrasound used to observe medication spread: Yes Injectate: 0.5% Ropivacaine (see comment for volume) (20cc) Blood Aspirated: No Pain Paresthesia on Injection Noted: No Resistance on Injection: Normal Image Stored and Saved: Yes Events: Uneventful and Well Tolerated
[2021-07-28] MEDS ORDERED: SENNOSIDES-DOCUSATE SODIUM 1 EACH TAB PO PRN (15:42)
[2021-07-28] MEDS ORDERED: HYDROcodone/APAP 7.5-325MG 1 EACH TAB PO PRN ×2 (15:45)
--- NOTE | 2021-07-28 16:45 | XR ---
Intraoperative fluoroscopic services were provided for right elbow fluoroscopy. Total fluoroscopy patel e were noted. A total of 4 submitted images to PACS. Please see the operative note for further detail s.
[2021-07-28] MEDS ORDERED: LACTATED RINGERS 1,000 ML IV ONE (16:59)
[2021-07-28] MEDS ORDERED: KETOROLAC 15 MG/ML 1 ML VIAL IVP ONE (17:38)
[2021-07-28] MEDS ORDERED: HYDROmorphone 0.5 MG/0.5 ML SYRINGE IVP ONE ×2 (17:40→18:08)
[2021-07-28] MEDS ORDERED: ONDANSETRON 4 MG/2 ML VIAL IVP ONE (18:05)
[2021-07-28] MEDS: oxyCODONE-APAP 5-325MG 1 EACH TAB PO PRN (19:58)
--- NOTE | 2021-07-28 20:06 | P.OP ---
Date of Procedure: 07/28/21 Preoperative Diagnosis: Right posttraumatic elbow arthritis Postoperative Diagnosis: Same Procedure(s) Performed: Right total elbow arthroplasty with radial head resection Implants: Discovery total elbow humeral component size 4, ulnar component size 5, standard polyethylene Anesthesia: gera VILLALOBOS Surgeon: Cherrie Pacheco Optician Apprentice Dispensing #1: Yanelis Duong Optician Apprentice Dispensing #2: Dayna Muhammad Estimated Blood Loss (ml): 50 Condition: stable Disposition: PACU Indications for Procedure: Be is a 60-year-old male who injured his right elbow as a child, necessitating a supracondylar osteotomy as an adolescent. This unfortunately developed into posttraumatic arthritis. He also has a history of a ulnar nerve transposition done about 6 years ago. He has failed all conservative treatment for his elbow arthritis and elects to proceed with arthroplasty with the full understanding of a 5 pound limitation for the longevity of his implant. Description of Procedure: The patient, operative extremity, and procedure were identified in the preop holding area. After informed consent was obtained the patient received a regional block by the anesthesia team. He was then brought back to the operating room. Gen. anesthesia was provided by the anesthesia team and the patient was turned into the lateral decubitus position with all structures at risk carefully padded. The right upper extremity was placed over an arm martini. He was then prepped and draped in normal sterile fashion. The sterile tourniquet was applied to the brachium. After formal timeout was performed in a longitudinal posterior incision was made sliding just medial to the olecranon process. Dissection was carried down carefully to the triceps tendon. Moving medially, the ulnar nerve was identified proximally behind the intermuscular septum. It was traced to its subfascial transposition site. Distally it was found between the 2 heads of the FCU and traced proximally to its subfascial transposition site. The ulnar nerve was carefully protected throughout the rest procedure. Attention was then turned to the triceps split. The radial edge of the distal ulna was traced proximally and the triceps was split in thirds longitudinally. Dissection was carried down to the posterior aspect of the humerus and a luevano elevator was used to free up proximal to the olecranon fossa. Dissection was then carefully carried to the collateral attachments on either side of the humerus. These were released off of the humerus. Distally on the lateral side the radiocapitellar joint was located and the annular ligament about the radial head was transected. With the forearm in pronation to protect the PIN nerve, the radial head was resected with a saw. Several large loose bodies were found in the joint and removed. An attempt was made to dislocate the elbow with the triceps attached. This did not provide enough exposure to the ulna and the decision was made to do triceps turned on. A transverse incision was made through the triceps fascia to make a distally based flap. The triceps muscle was then split longitudinally and the humerus was delivered posteriorly. This allowed good exposure to the ulna. Attention was first turned to the ulna preparation. The olecranon tip was removed with a saw and the canal was accessed with a series of awls and rasps. Sequential broaches were then utilized and the size 5 was found to be the correct size. drain tiler was used to seat the trial prosthesis with the appropriate center point. Fluoroscopy was used to confirm the placement of the prosthesis trial. Attention was then turned to the distal humerus preparation. The external guide was used and lined up with the intercondylar axis and medial epicondyle. A drill was inserted into the hole followed by trephination. A oscillating saw was then used to finish the cuts in the distal humerus. Canal finder and serial broaches were used. Fluoroscopy was also utilized to ensure that there was no penetration of the cortex given the patient's history of a supracondylar osteotomy. Size 4 humerus was found to be the appropriate size. Trials were then inserted and positioning was confirmed on fluoroscopy. Elbow was taken through full range of motion and achieved 0-140 of flexion. The wound was then copiously irrigated with normal saline and the canals were prepped for cement. A sizer for the humeral cement plug was too big so the decision was made to cement without a block. High viscosity cement was mixed and applied into each canal. Final implants were placed both proximally and distally and the trial poly-was used to link the 2 components. Elbow was placed in full extension while the cement cured. Once the cement was fully cured elbow was taken through a full range of motion and found to achieve 0-140 of flexion. Final x-rays were taken and showed excellent prosthesis placement and no signs of fractures. Wound was thoroughly irrigated with Aricept. Tourniquet was let down again. Hemostasis was achieved. The triceps tendon was repaired with #2 FiberWire in a locking stitch fashion. The remainder of the soft tissue sleeve was also repaired with 0 Vicryl. The wound was then closed in a layered fashion with 3-0 Vicryl and 4-0 Monocryl skin glue. A dressing was used. Elbow was then splinted in a resting position of about 30 of flexion. Patient was awakened by the anesthesia team and brought to PACU in stable condition. He'll be admitted overnight for pain control and IV antibiotics. He'll come see us in the office in a week.
--- NOTE | 2021-07-28 20:09 | FL ---
EXAMINATION TYPE: FL guidance operating room DATE OF EXAM: 07/28/2021 CLINICAL HISTORY: Right elbow pain. TECHNIQUE: Fluoroscopy. COMPARISON: None. FINDINGS: Fluoroscopic guidance was provided during elbow arthroscopy procedure performed by Dr. Pacheco . A total of 27 seconds of fluoroscopic time was utilized during the procedure and 4 spot intraopera tive images are acquired. IMPRESSION: As Above.
[2021-07-28] MEDS: ONDANSETRON 4 MG/2 ML VIAL IVP PRN (22:32)
[2021-07-29] MEDS: HYDROmorphone 0.5 MG/0.5 ML SYRINGE IVP PRN (00:40)
[2021-07-29] MEDS: oxyCODONE-APAP 5-325MG 1 EACH TAB PO PRN ×3 (03:34→20:36)
[2021-07-29] MEDS: HYDROmorphone 1 MG/ML 1 ML SYRINGE IVP PRN ×4 (04:27→17:54)
[2021-07-29] MEDS: LACTATED RINGERS 1,000 ML IV SCH (04:31)
[2021-07-29] MEDS: ONDANSETRON 4 MG/2 ML VIAL IVP PRN (05:14)
[2021-07-29] MEDS ORDERED: HYDROmorphone 0.5 MG/0.5 ML SYRINGE IVP STA (05:26)
[2021-07-29] MEDS: diazePAM 5 MG TAB PO PRN ×2 (10:28→22:11)
[2021-07-29] MEDS ORDERED: KETOROLAC 30 MG/ML 1 ML VIAL IVP STA (12:42)
[2021-07-29 12:55] VITALS: RESP 16
--- NOTE | 2021-07-29 15:17 | P.PN ---
Subjective Progress Note Date: 07/29/21 Principal diagnosis: Status post right total elbow arthroplasty This is a 60 year-old male post right total elbow arthroplasty. This is post-op day 1. The patient was evaluated at the bedside today. The patient denies abdominal pain, shortness of breath, and chest pain. He has had some nausea and vomiting this morning but is feeling better now. He states his pain is not well controlled at this time. The patient has not been up to the bathroom and is u sing a urinal at the bedside. Objective - Vital Signs Vital signs: Vital Signs Temp 97.4 F L 07/29/21 12:50 Pulse 61 07/29/21 12:50 Resp 16 07/29/21 12:50 BP 118/78 07/29/21 12:50 Pulse Ox 95 07/29/21 12:50 Intake & Output 07/28/21 07/29/21 07/29/21 18:59 06:59 18:59 Intake Total 1600 1100 236 Output Total 50 85 Balance 1550 1015 236 Weight 79.1 kg 79.1 kg Intake: IV 1600 Intake, IV Titration 100 Amount ceFAZolin 2 gm In Sodium 100 Chloride 0.9% 50 ml @ 100 mls/hr IVPB Q8H [facility] Rx#: [id number] Oral 1000 236 Output: Emesis 85 Estimated Blood Loss 50 Other: # Voids 2 - Exam The patient does not appear in acute distress. Alert and orientated x3. Dressing is clean dry and intact. Allen wrap was removed and webril loosen. Allen wrap re-wrapped. Arm is soft and nontender. Good finger and hand motion without difficulty with the splint loosened. Sensation and circulatory status is intact. - Labs CBC & Chem 7: 07/28/21 10:38 07/28/21 10:38 Assessment and Plan (1) S/P elbow joint replacement Current Visit: Yes Status: Acute Code(s): Z96.629 - PRESENCE OF UNSPECIFIED ARTIFICIAL ELBOW JOINT SNOMED Code(s): 083306884 (2) Osteoarthritis of right elbow Current Visit: Yes Status: Acute Code(s): M19.021 - PRIMARY OSTEOARTHRITIS, RIGHT ELBOW SNOMED Code(s): 630947735289987 Plan: 1. Continue pain control with Percocet and Valium. Dilaudid only if needed. Toradol 30 mg x1. 2. Elevate and ice elbow 3. Continue ambulation 4. Anticipate discharge home tomorrow if pain control is better.
[2021-07-30] MEDS: oxyCODONE-APAP 5-325MG 1 EACH TAB PO PRN ×2 (00:55→11:49)
[2021-07-30] MEDS: HYDROmorphone 1 MG/ML 1 ML SYRINGE IVP PRN (01:37)
[2021-07-30] MEDS: diazePAM 5 MG TAB PO PRN (04:56)
[2021-07-30] MEDS: LACTATED RINGERS 1,000 ML IV SCH (05:15)
[2021-07-30 06:24] VITALS: PULSE 69
[2021-07-30] MEDS: HYDROmorphone 0.5 MG/0.5 ML SYRINGE IVP PRN (08:28)
[2021-07-30 12:13] VITALS: BP 122/69; TEMP 98.2
--- NOTE | 2021-07-30 12:24 | P.DS ---
Providers Date of admission: 07/29/21 11:14 Expected date of discharge: 07/30/21 Attending physician: Cherrie Pacheco DO Primary care physician: Jessica Borrero - Discharge Diagnosis(es) (1) S/P elbow joint replacement Current Visit: Yes Status: Acute (2) Osteoarthritis of right elbow Current Visit: Yes Status: Acute Hospital Course: This is a 60-year-old male with known history of posttraumatic arthritis in the right elbow. The patient presented to the orthopedic office for evaluation. After discussion and consideration patient elects to proceed with a right total elbow arthroplasty. The patient is seen preoperatively by his primary care physician and cleared for surgery. Patient is admitted to observation at [facility] on 07/28/2021 for right total elbow arthroplasty. The procedures performed without complication or sequelae. The patient is doing well postoperatively. Labs and vital signs are stable on day of discharge. On day of discharge patient's pain is better controlled. The dressing and splint are clean and dry. There is a Prevana wound vac in place without any drainage in the tubing. There is minimal soft tissue swelling to the right upper extremity. Patient has full hand, wrist, and elbow motion without difficulty or pain. Neurovascular status to the right upper extremity is intact. Patient is discharged to home in good condition. Pertinent Studies: Laboratory Tests 07/28/21 07/28/21 10:38 10:38 WBC 6.5 RBC 4.29 L Hgb 13.6 Hct 39.5 Glucose 109 H Patient Condition at Discharge: Stable Plan - Discharge Summary Discharge Rx Participant: Yes New Discharge Prescriptions: New Diazepam [Valium] 5 mg PO Q8H PRN #15 tab PRN Reason: Pain Sennosides-Docusate Sodium [Senokot-S] 1 tab PO BID #30 tablet oxyCODONE HCL/ACETAMINOPHEN [Percocet 5-325 mg] 1 tab PO Q4-6H PRN #28 tab PRN Reason: Pain Discharge Medication List Sennosides-Docusate Sodium [Senokot-S] 1 tab PO BID #30 tablet 07/28/21 [Rx] Diazepam [Valium] 5 mg PO Q8H PRN #15 tab 07/30/21 [Rx] oxyCODONE HCL/ACETAMINOPHEN [Percocet 5-325 mg] 1 tab PO Q4-6H PRN #28 tab 07/30/21 [Rx] Follow up Appointment(s)/Referral(s): Yanelis Duong NPC [Nurse Practitioner] - 08/04/21 9:15 am (Already scheduled. ) Jessica Borrero MD [Primary Care Provider] - 1 Week Activity/Diet/Wound Care/Special Instructions: Keep dressing and splint clean and dry. The splint and wound vac will be removed in the office in 1 week. Sling for comfort. Elevate and ice elbow. Follow up in the office in 1 week (08/04/2021) with Yanelis Duong NP. Discharge Disposition: HOME SELF-CARE
== END 2021-07-30 15:21 | disposition home or self-care (01) ==
LOC: OR 09:41 → 4SSUR 18:00 → OR 07-29 10:47 → 4SSUR 07-29 11:14
PROVIDERS: ADMIT Orthopaedic Surgery Hand Surgery; ATTEND Orthopaedic Surgery Hand Surgery
DX: M19.121 Post-traumatic osteoarthritis, right elbow (principal); R11.2 Nausea with vomiting, unspecified; K21.9 Gastro-esophageal reflux disease without esophagitis; Z20.822 Contact with and (suspected) exposure to COVID-19; Z88.0 Allergy status to penicillin
CPT/HCPCS: 24365; 64415; 76942; 80053; 85025; 88300; 87635; 73080; G0378 ×2; C1776; C1713; J2250; J1100; J2710; J0690 ×4; J2405 ×2; J2001; J3010; J1885 ×2; J1170 ×5; J2795; J0330; J2704

== ENCOUNTER → 2022-04-27 | Outpatient (CLI) | payer BC, OTHER ==
--- NOTE | 2022-04-27 14:47 | CT ---
EXAMINATION TYPE: CT left knee - [facility] Protocol DATE OF EXAM: 04/27/2022 COMPARISON: None HISTORY: Pain Left Knee, [facility] Protocol CT DLP: 490.7 mGycm Examination of the solid and hollow viscera is limited given the lack of contrast.[facility] Protocol unenh anced CT of the lower extremities was performed ascending from the hips through the ankles. FINDINGS: There is no evidence for fracture or dislocation. Mild degenerative narrowing seen about the hip join ts. Severe narrowing medial tibiofemoral joint space. Associated chondrocalcinosis and spur formation . Chondrocalcinosis left lateral tibiofemoral joint space. Subchondral cyst formation. There appear t o be changes of prior ACL reconstruction. Moderate narrowing of patellofemoral joint space. Unremarka ble ankle joints. IMPRESSION: [facility]
== END | disposition home or self-care (01) ==
LOC: RADCTMAIN 13:24
PROVIDERS: ATTEND Orthopaedic Surgery
DX: M25.562 Pain in left knee (principal)

== ENCOUNTER 2022-05-20 11:12 | Observation (INO) | payer BC ==
[2022-05-15 09:35] VITALS: BMI 27.6
[~2022-05-20 11:12] MED LIST changes: +ACETAMINOPHEN TAB 500 MG TAB PO PRN; +DEXAMETHASONE SOD PHOSPHATE 10 MG/ML 1 ML VIAL IV PRN; +DOCUSATE 100 MG CAP PO PRN; +FAMOTIDINE 20 MG/2 ML VIAL IVP PRN; +HYDROmorphone 0.5 MG/0.5 ML SYRINGE IVP PRN; +KETOROLAC 15 MG/ML 1 ML VIAL IVP PRN; +MIDAZOLAM 2 MG/2 ML VIAL IV PRN; -MORPHINE SULFATE 4 MG/ML SYRINGE IV PRN; +ONDANSETRON 4 MG/2 ML VIAL IVP PRN; +ROPIVACAINE 246.25 MG, EPINEPHrine 0.5 MG, KETOROLAC (30 mg/mL) 30 MG, cloNIDine HCL/PF... MISCELLANE PRN; -SCOPOLAMINE 1.5MG/72HR PATCH TRANSDERM ONE; +TRANEXAMIC ACID IN NACL,ISO-OS 1,000 MG in SALINE 1 100ML.BAG IVPB PRN; +oxyCODONE ER 10 MG TAB.ER.12H PO PRN
[2022-05-20] MEDS: LACTATED RINGERS 1,000 ML IV SCH ×2 (12:10→21:33)
[2022-05-20] MEDS ORDERED: LACTATED RINGERS 1,000 ML IV ONE (14:04)
[2022-05-20] MEDS ORDERED: LIDOCAINE 2% INJ 20 MG/ML (2 ML VIAL) ONE (15:19)
[2022-05-20] MEDS ORDERED: PROPOFOL 10 MG/ML 20 ML VIAL IV ONE (15:19)
[2022-05-20] MEDS ORDERED: GLYCOPYRROLATE 0.2 MG/ML 2 ML VIAL ONE (15:19)
[2022-05-20] MEDS ORDERED: ROPIVACAINE 5 MG/ML 30 ML VIAL ONE (15:19)
[2022-05-20] MEDS ORDERED: HYDROmorphone (PF) 1 MG/ML ONE (15:19)
[2022-05-20] MEDS ORDERED: NEOSTIGMINE 1 MG/ML 10 ML VIAL ONE (15:19)
[2022-05-20] MEDS ORDERED: PHENYLEPHRINE-0.9% NACL SYG 1,000 MCG/10 ML SYRINGE ONE (15:19)
[2022-05-20] MEDS ORDERED: fentaNYL (PF) 50 MCG/ML 2 ML AMP ONE (15:19)
[2022-05-20] MEDS ORDERED: ROCURONIUM 10 MG/ML (5 ML VIAL) IV ONE (15:19)
[2022-05-20] MEDS ORDERED: WATER FOR INJECTION, STERILE 10 ML VIAL IV ONE (15:19)
[2022-05-20] MEDS ORDERED: SODIUM CHLORIDE 0.9% (PF) 10 ML VIAL ONE (15:19)
[2022-05-20] MEDS ORDERED: ePHEDrine 50 MG/ML 1 ML VIAL ONE (15:19)
[2022-05-20] MEDS ORDERED: TRANEXAMIC ACID IN NACL,ISO-OS 1,000 MG/100 ML BAG ONE (15:19)
[2022-05-20] MEDS ORDERED: SUCCINYLCHOLINE CHLORIDE 200 MG/10 ML VIAL IV ONE (15:19)
[2022-05-20] MEDS ORDERED: NALOXONE 0.4 MG/ML 1 ML VIAL IV PRN (15:59)
--- NOTE | 2022-05-20 16:03 | P.OP ---
Date of Procedure: 05/20/22 Preoperative Diagnosis: 1. Left severe posttraumatic knee arthritis 2. Multiple surgeries left knee Postoperative Diagnosis: Same Procedure(s) Performed: Left total knee arthroplasty Implants: 1. [place] [employer] CR Femur Size #7 2. [place] [employer] [place] Tibial Base Size #6 3. [employer] Tri[employer]lon CS poly Size #6, 10-mm 4. [employer] Tri[employer]lon all poly patella, Size #35 Anesthesia: GETA, regional Surgeon: Jaylon Garcia Plexiglas Former #1: Saturnino Celaya Estimated Blood Loss (ml): 50 IV fluids (ml): 1,200 Pathology: none sent Condition: stable Disposition: PACU Indications for Procedure: The patient is a very pleasant 61-year-old male who has had a long-standing history of problems with his left knee. He's had multiple injuries requiring surgery including ligament repair. He went on to develop severe and incapacitating knee arthritis that failed to resolve with nonsurgical treatment. He met with me to discuss continued nonsurgical treatment versus surgery. The patient smokes and was able to cut back significantly on the amount he was smoking but not completely quit. We discussed that it would be ideal for him to completely quit but he states that he is unable to. He understands and accepts the higher risk of complication including delayed wound healing and infection. A long discussion on the surgery itself and recovery including complications. I met with the patient preoperatively in the office setting and discussed treatment of their symptomatic knee arthritis. They failed a long course of nonsurgical treatment and elected to proceed with an elective total knee repl acement. I discussed the potential risks and complications at length and gave them ample time to ask questions. Risks discussed included: risks from anesthesia, superficial site surgical infection, acute and/or chronic periprosthetic joint infection, delayed wound healing, drainage, wound necrosis, instability, stiffness, stiffness requiring manipulation and/or revision surgery, damage to local blood vessels or nerves, aseptic loosening of the implants, extensor mechanism issues including disruption, patellar maltracking, avascular necrosis etc., continued or worsened knee pain, generalized dissatisfaction with surgical outcome, need for revision surgery, an inability to regain preinjury level of function, DVT, PE, other medical complications, and possibly loss of life or limb. The patient voiced their understanding that while these are the most common complications other less common complications are possible. They provided both their verbal and written consent to go forward with surgery. Operative Findings: Severe tricompartmental osteoarthritis Description of Procedure: The patient was identified in preoperative holding and the correct operative extremity was verified and marked with a marker. I reviewed the consent form with the patient at length. All of their questions were answered. The patient was given a block by anesthesia. They were then brought back to the operating room. They were transferred onto the operating room table where a general anesthetic, preoperative antibiotics, and tranexamic acid were administered by anesthesia. A tourniquet was applied to the proximal aspect of the operative extremity. The contralateral extremity was padded under the heel and secured to the operating room table with a nonsterile blue towel and tape. The ipsilateral arm was carefully draped across the patient's chest and secured with a pillow and foam. A post was applied over the lateral aspect of the ipsilateral thigh and a bolster was placed under the ipsilateral foot. I verified that the operative extremity was stable and the knee was flexed to 90. The operative extremity was then placed in a leg martini, nonsterile drapes were applied, and the extremity was prepped and draped sterilely in the standard sterile fashion. Prior to starting surgery timeout was performed identifying the correct patient, operative extremity, and procedure. The leg was then elevated, exsanguinated with an Esmarch bandage, and the tourniquet was inflated. On inspection of the knee prior to making incision there were multiple prior scars from previous surgery. There was a far lateral incision that was not able to be used and 2 medial incisions. An anterior midline incision was made sharply with a scalpel incorporating the more lateral medial incision and extending it proximally and distally. Once I had dissected deep to the superficial fascial layer medial and lateral flaps were elevated. A medial parapatellar arthrotomy was created. Upon opening the knee joint there were diffuse arthritic changes in all 3 compartments. The anterior horn of the medial meniscus were sharply released and a medial release was performed around the posterior medial corner of the knee to facilitate retractor placement. The fat pad was excised with electrocautery. The patella was found to be severely arthritic and a provisional cut was made with a sagittal saw to facilitate mobilization of the extensor mechanism during the procedure. Remnants of the ACL and PCL were then excised from the notch. 4 mm pins were then placed within the incision in the medial distal femur and proximal tibia. Arrays were applied to the pins and I verified they were completely tightened. The knee was then registered with the [employer] robot and manipulations in implant position were made to balance the knee and opitmize implant position. Using the Jose L robotic saw all cuts were made in accordance with our plan. After all bony fragments had been removed the cuts were verified with the planar probe. The tibia was then subluxed forward and sized. The knee was brought into flexion and a lamina patent attorney was placed to allow removal of the meniscal remnants both medially and laterally as well as posterior osteophytes. Local anesthetic was then infiltrated around the joint capsule. Trial implants were then placed within t he knee. Range of motion and collateral ligament tension was then evaluated. Adjustments in implant size and position were then made accordingly. Once the knee was felt to be appropriately balanced the Jose L pins were removed. The patella was then recut, sized, and punched. A trial patellar button was then placed. With the trial components in place, the patella tracked midline. The femur was then drilled and the trial component removed. The trial tibial component was then appropriately rotated, pinned, and prepared for the keel. All trial components were then removed from the knee. The knee was thoroughly irrigated with pulsatile lavage. Cement was prepared via vacuum mixing in a bowl on the back table. I then hand pressurized cement into the femur and tibia and placed the implants beginning with the tibial base tray and poly liner, femoral component, and finally the patellar button. All extruded cement was removed including from the pin sites. Once the cement had hardened the knee was evaluated one final time with the final polyethylene liner in place. The knee had full extension and flexion and felt stable to varus and valgus stress throughout the arc of motion. The tourniquet was released and with the tourniquet down the patella tracked midline. All bleeders were controlled with electrocautery. The knee was then soaked for 3 minutes with a dilute Betadine soak. The knee was thoroughly irrigated using 3 L of sterile saline and pulsatile lavage. A deep drain was placed. The extensor mechanism was then reapproximated using pop off Vicryl sutures followed by a running barbed suture. The knee was then closed in layers with a 0 strata fix for the deep fascial layer, 2-0 strata fix for the superficial subcutaneous layer and Monocryl and Steri-Strips for the skin. A sterile dressing and drain sponge were applied. I verified that all instrument, sponge, and sharp counts were correct. The patient was then transferred off the operating room table, extubated, and brought to recovery having tolerated the procedure well. Saturnino Celaya PA-C was required as a skilled occupational therapist assistant due to the complexity of the procedure for patient positioning, draping, retraction, placement of hardware, and closure of wound. PLAN: The patient can weight-bear as tolerated on the operative extremity. DVT prophylaxis with aspirin 81 mg twice a day based on preoperative risk stratification. The patient was strongly encouraged to quit smoking. Due to his history of infection and smoking he'll be treated with doxycycline 100 mg twice a day for 2 weeks Follow-up in the office in 2 weeks for wound check and x-rays of the knee including an AP and lateral.
[2022-05-20] MEDS ORDERED: hydrOXYzine pamoate 25 MG CAP PO PRN (16:04)
[2022-05-20] MEDS ORDERED: HYDROmorphone 0.5 MG/0.5 ML SYRINGE IVP PRN ×2 (16:04)
[2022-05-20] MEDS ORDERED: HYDROmorphone 1 MG/ML 1 ML SYRINGE IVP PRN (16:04)
[2022-05-20] MEDS ORDERED: ONDANSETRON 4 MG/2 ML VIAL IVP PRN (16:04)
[2022-05-20] MEDS ORDERED: HYDROcodone/APAP 5-325MG 1 EACH TAB PO PRN (16:04)
--- NOTE | 2022-05-20 16:20 | XR ---
EXAMINATION TYPE: XR knee limited LT DATE OF EXAM: 05/20/2022 CLINICAL HISTORY: Left knee pain and arthritis status post total knee replacement. TECHNIQUE: Portable AP and crosstable lateral views of the left knee are obtained immediately postop eratively. COMPARISON: CT left knee April 27, 2022 FINDINGS: Metallic hardware from total left knee arthroplasty is seen and appears satisfactory in al ignment and position. There is evidence of recent surgery with diffuse subcutaneous gas , soft tissu e swelling, and percutaneous suprapatellar surgical drain noted. IMPRESSION: METALLIC HARDWARE FROM TOTAL LEFT KNEE ARTHROPLASTY IS SATISFACTORY IN ALIGNMENT.
[2022-05-20] MEDS ORDERED: ONDANSETRON 4 MG/2 ML VIAL IVP ONE (16:43)
--- NOTE | 2022-05-20 16:57 | P.ANPRN ---
Procedure Note - Anesthesia - Nerve Block Performed Left Adductor Canal Time Out Performed: Yes (12:35) Date of Procedure: 05/20/22 Procedure Start Time: :35 Procedure Stop Time: :41 Location of Patient: PreOp Indication: Acute Post-Operative Pain, Requested by Surgeon (Dr Garcia) Sedation Type: Sedate with meaningful contact maintained Preparation: Sterile Prep Position: Supine Catheter: None Needle Types: Pajunk Needle Gauge: 21 Ultrasound used to visualize needle placement: Yes Ultrasound used to observe medication spread: Yes Injectate: 0.5% Ropivacaine (see comment for volume) (15cc) Blood Aspirated: No Pain Paresthesia on Injection Noted: No Resistance on Injection: Normal Image Stored and Saved: Yes Events: Uneventful and Well Tolerated
--- NOTE | 2022-05-20 16:59 | P.ANPRN ---
Procedure Note - Anesthesia - Nerve Block Performed Left iPack Time Out Performed: Yes Date of Procedure: 05/20/22 Procedure Start Time: 12:42 Procedure Stop Time: 12:47 Location of Patient: PreOp Indication: Acute Post-Operative Pain, Requested by Surgeon (Dr Garcia) Sedation Type: Sedate with meaningful contact maintained Preparation: Sterile Prep Position: Supine Catheter: None Needle Types: Pajunk Needle Gauge: 21 Ultrasound used to visualize needle placement: Yes Ultrasound used to observe medication spread: Yes Injectate: 0.5% Ropivacaine (see comment for volume) (15cc +5cc PF Normal saline) Blood Aspirated: No Pain Paresthesia on Injection Noted: No Resistance on Injection: Normal Image Stored and Saved: Yes Events: Uneventful and Well Tolerated
[2022-05-20] MEDS: HYDROcodone/APAP 5-325MG 1 EACH TAB PO PRN (17:45)
[2022-05-20] MEDS ORDERED: SENNOSIDES-DOCUSATE SODIUM 1 EACH TAB PO SCH (21:00)
[2022-05-20] MEDS: ASPIRIN 81 MG PO SCH (21:32)
[2022-05-21] MEDS: LACTATED RINGERS 1,000 ML IV SCH ×3 (05:22→13:02)
[2022-05-21 08:49] VITALS: BP 100/59; PULSE 71; RESP 18; TEMP 98.2
[2022-05-21] MEDS: ASPIRIN 81 MG PO SCH (09:17)
[2022-05-21 09:31] LABS: Basophils # (A) 0.02 X 10*3/uL (0.00-0.10); Basophils % (A) 0.2 %; Eosinophils # (A) 0.01 X 10*3/uL (0.04-0.35); Eosinophils % (A) 0.1 %; HCT 35.2 % (39.6-50.0); HGB 11.5 g/dL (13.0-17.0); Immature Grans, Automated 0.4 %; Lymphocytes # (A) 1.44 X 10*3/uL (0.90-5.00); MCH 30.8 pg (27.0-32.0); MCHC 32.7 g/dL (32.0-37.0); MCV 94.4 fL (80.0-97.0); Mean Platelet Volume 11.4 fL (9.5-12.2); Monocytes # (A) 1.06 X 10*3/uL (0.20-1.00); Monocytes % (A) 8.1 %; NRBC Per 100 WBC 0 /100 WBCS (0.0-0.0); Neutrophils # (A) 10.54 X 10*3/uL (1.80-7.70); Neutrophils % (A) 80.2 %; Platelet Count 172 X 10*3/uL (140-440); RBC 3.73 X 10*6/uL (4.40-5.60); RDW 13.1 % (11.5-14.5); WBC 13.12 X 10*3/uL (4.50-10.00)
[2022-05-21] MEDS: HYDROcodone/APAP 5-325MG 1 EACH TAB PO PRN (09:40)
--- NOTE | 2022-05-21 10:18 | P.DS ---
Providers Date of admission: 05/21/22 08:44 Expected date of discharge: 05/21/22 Attending physician: Jaylon Garcia Consults: 05/20/22 16:04 Consult Physician Routine Consulting Provider: Nam Matthews Consult Reason/Comments: medical management Do you want consulting provider notified?: Yes Primary care physician: Reta Helm [facility] Course: This is a 61-year-old male who has been followed in our office by Dr. Garcia for continued complaints of left knee pain due to left knee osteoarthritis. Treatment options were discussed, and patient elected to undergo a left total knee arthroplasty. Patient was seen pre-operatively by Dr. Mcduffie, Dr. Saucedo and cleared for surgery. Patient underwent a left total knee arthroplasty on 05/20/[address] Garcia. The procedure was performed without complication or sequelae. The patient is doing fairly well postoperatively. Vital signs and labs are stable on postoperative day #1. Patient was examined bedside today. He is currently up to the bedside chair. Patient states he is overall doing very well and the pain in his left knee is well-controlled. She has been ambulating with a walker with minimal assistance. Patient has passed physical therapy this morning. Patient is tolerating his diet well. Patient is comfortable being discharged home today. Patient denies chest pain, shortness of breath, nausea, vomiting, fevers, chills. On examination, the patient is sitting up in the bedside chair in no apparent distress. He is alert and orientated 3. On inspection of the left knee, there is a clean, dry, intact Opsite dressing in place. Hemovac drain was removed bedside this morning by Dr. Garcia. There is no bleeding or drainage the dressing. Patient has good strength and ROM of the left ankle and toes. Motor and sensory function is intact of the left lower extremity. The dorsalis pedis pulse is easily palpable, the left lower extremity is warm and well perfused with brisk capillary refill. Calf is soft and non-tender to palpation. Patient is discharged home with home health care today in good condition, pending medical clearance. Patient will follow-up with Dr. Garcia in the office in 2 weeks. Please see med rec for accurate list of discharge medication. Plan - Discharge Summary Discharge Rx Participant: Yes New Discharge Prescriptions: New Aspirin 81 mg PO BID 30 Days #60 tab Doxycycline Monohydrate 100 mg PO BID 14 Days #28 cap Diclofenac Sodium [Voltaren] 75 mg PO BID 30 Days #60 tab Docusate [Colace] 100 mg PO BID #60 capsule HYDROcodone/APAP 5-325MG [Slick 5-325] 1 - 2 tab PO Q6HR PRN 7 Days #32 tab PRN Reason: Pain Omeprazole 40 mg PO DAILY 30 Days #30 cap Discharge Medication List Aspirin 81 mg PO BID 30 Days #60 tab 05/21/22 [Rx] Diclofenac Sodium [Voltaren] 75 mg PO BID 30 Days #60 tab 05/21/22 [Rx] Docusate [Colace] 100 mg PO BID #60 capsule 05/21/22 [Rx] Doxycycline Monohydrate 100 mg PO BID 14 Days #28 cap 05/21/22 [Rx] HYDROcodone/APAP 5-325MG [Slick 5-325] 1 - 2 tab PO Q6HR PRN 7 Days #32 tab 05/21/22 [Rx] Omeprazole 40 mg PO DAILY 30 Days #30 cap 05/21/22 [Rx] Follow up Appointment(s)/Referral(s): Eric Mcduffie MD [Primary Care Provider] - 1 Week [facility] [NON-STAFF] - As Needed (walker) [facility] [NON-STAFF] - As Needed Jaylon Garcia MD [Medical Doctor] - 06/02/22 2:45 pm Activity/Diet/Wound Care/Special Instructions: Weight bear to tolerance on operative extremity with a walker. Keep operative dressings intact until follow-up in the office in two weeks. Call the office if dressing becomes saturated or falls off. May shower over dressing. Take pain medication as prescribed. Take aspirin 81mg twice a day for blood clot prevention. Take antibiotics as prescribed for two weeks. Follow-up in the office in two weeks at [facility]. Call the office with any questions or concerns, Discharge Disposition: HOME WITH HOME HEALTH SERVICES
--- NOTE | 2022-05-21 14:55 | P.CONS ---
History of Present Illness - Reason for Consult Consult date: 05/21/22 Medical management, postop left total knee arthroplasty - History of Present Illness This is a 61-year-old male who was recently admitted under orthopedic services and underwent left total knee arthroplasty with Dr. Garcia postop day #1. Patient reports he is feeling well and worked with physical therapy and reports to being discharged sometime today. Patient reports he follows with Dr. Mcduffie in the outpatient setting with past medical history of testicular cancer and skin cancer, angina, GERD, hypertension, osteoarthritis. Patient reports to smoking tobacco and encourage cessation. Patient reports he smokes approximately a few cigarettes per day. Patient reports he does not take any medications at home on a regular basis. Patient denies illicit drug use and reports to occasional alcohol on social events. Lab reviewed with a WBC of 13.12 and hemoglobin is 11.5. The BBC most likely reactive secondary to surgery. Vital signs are stable and patient denies any chest pain, shortness of breath, or palpitations. Patient is anxious to go home. Patient does have an incentive spirometer at home and encourage the patient to continue using at least 10 times every hour while awake. Reports the tolerating diet with no reports of nausea or vomiting noted. Postop x-ray of the left knee shows metallic hardware from a total left knee arthroplasty is satisfactory in alignment with some soft tissue swelling. Review Of Systems: Constitutional: No fever, no chills, no night sweats. No weight change. No weakness, fatigue or lethargy. No daytime sleepiness. EENT: No headache. No blurred vision or double vision, no loss of vision. No loss of Hearing, no ringing in the ears, no dizziness. No nasal drainage or congestion. No epistaxis. No sore throat. Lungs: No shortness of breath, cough, no sputum production. No wheezing. Cardiovascular: No chest pain, no lower extremity edema. No palpitations. No paroxysmal nocturnal dyspnea. No orthopnea. No lightheadedness or dizziness. No syncopal episodes. Abdominal: No abdominal pain. No nausea, vomiting. No diarrhea. No constipation. No bloody or tarry stools.. No loss of appetite. Genitourinary: No dysuria, increased frequency, urgency. No urinary retention. Musculoskeletal: No myalgias. No muscle weakness, no gait dysfunction, no frequent falls. No back pain. No neck pain. Reports some left knee discomfort Integumentary: No wounds, no lesions. No rash or pruritus. No unusual bruising. No change in hair or nails. Neurologic: No aphasia. No facial droop. No change in mentation. No head injury. No headache. No paralysis. No paresthesia. Psychiatric: No depression. No anxiety. No mood swings. Endocrine: No abnormal blood sugars. No weight change. No excessive sweating or thirst. No cold intolerance. PHYSICAL EXAMINATION: GENERAL: The patient is alert and oriented x4, Well developed, well nourished. HEENT: Pupils are round and equally reacting to light. EOMI. no scleral icterus. No conjunctival pallor. Normocephalic, atraumatic. No pharyngeal erythema. No thyromegaly. CARDIOVASCULAR: S1 and S2 muffled PULMONARY: diminished breath sounds bilaterally otherwise clear to auscultation with no wheezing or rhonchi noted. ABDOMEN: soft. Nontender on exam. non-distended, normoactive bowel sounds. No palpable organomegaly. MUSCULOSKELETAL: No joint swelling or deformity. EXTREMITIES: No cyanosis, clubbing, or pedal edema. Left surgical knee dressing is dry and intact with no surrounding erythema and minimal swelling noted NEUROLOGICAL: Gross neurological examination did not reveal any focal deficits. SKIN: No rashes. Assessment: Status post left total knee arthroplasty Mild leukocytosis, most likely reactive secondary to above Gastroesophageal reflux disease Hypertension Osteoarthritis Continued ongoing nicotine abuse GI prophylaxis DVT prophylaxis Full code Plan: Recommend to continue with current medications and management per orthopedic services. Patient has been seen and evaluated by PT/OT therapy and did relatively well and will be scheduled to go home today. Patient is postop left knee total arthroplasty and reports his pain is managed on current regimen. Patient reports he does not take any regularly scheduled medications for any significant medical history. Patient reports he follows with Dr. Mcduffie outpatient and encourage the patient to follow-up on discharge. Incentive spirometer encouraged to continue using at least 10 times every hour while awake. WBC reviewed and mildly elevated most likely reactive secondary to surgery. Patient is afebrile denies any shortness of breath, cough or dysuria. Patient is awaiting discharge instructions and will be going home today. We will continue to follow during hospitalization. Thank you kindly for this consultation. The impression and plan of care has been dictated by Jocy Guajardo, nurse practitioner as directed. Dr. Altagracia MD I have performed a history and examination and MDM of this patient, discussed the same with the dictator, and agree with the dictator's assessment and plan as written ,documented as a scribe. Based on total visit time, I have performed more than 50% of the visit. Any additional findings or plans will be noted. Past Medical History Past Medical History: Cancer, Chest Pain / Angina, GERD/Reflux, Hypertension, Osteoarthritis (OA) Additional Past Medical History / Comment(s): Hx testicular cancer, skin cancer, diverticulitis, "irregular heartbeat", recent episode of chest pain and was diagnosed with a hiatal hernia. History of Any Multi-Drug Resistant Organisms: None Reported Year Discovered:: aug 2021 MDRO Source:: axilla Past Surgical History: Orthopedic Surgery Additional Past Surgical History / Comment(s): Right testicle removed, left knee surgery, left knee arthroscopy, right elbow surgery, skin cancer removed from back and scalp, COLONOSCOPY., EGD Past Anesthesia/Blood Transfusion Reactions: No Reported Reaction Past Psychological History: No Psychological Hx Reported Smoking Status: Current every day smoker Past Alcohol Use History: Occasional Additional Past Alcohol Use History / Comment(s): Has been smoking SINCE 2001 down to 5 cigarettes per day. Past Drug Use History: None Reported Additional Drug Use History / Comment(s): OCCASIONAL USE-INSTRUCTED TO REFRAIN FROM USE FOR AT LEAST 24 HOURS PROR TO PROCEDURE - Past Family History Mother Family Medical History: No Reported History Father Family Medical History: Cancer Additional Family Medical History / Comment(s): prostate cancer Medications and Allergies Home Medications Medication Instructions Recorded Confirmed Type Aspirin 81 mg PO BID 30 Days #60 tab 05/21/22 Rx Diclofenac Sodium [Voltaren] 75 mg PO BID 30 Days #60 tab 05/21/22 Rx Docusate [Colace] 100 mg PO BID #60 capsule 05/21/22 Rx Doxycycline Monohydrate 100 mg PO BID 14 Days #28 cap 05/21/22 Rx HYDROcodone/APAP 5-325MG [Lennon 1 - 2 tab PO Q6HR PRN 7 Days #32 05/21/22 Rx 5-325] tab Omeprazole 40 mg PO DAILY 30 Days #30 cap 05/21/22 Rx Allergies Allergy/AdvReac Type Severity Reaction Status Date / Time Penicillins Allergy Unknown Verified 05/20/22 11:46 Childhood Physical Exam Vitals: Vital Signs Temp Pulse Resp BP Pulse Ox 05/21/22 08:02 97 05/21/22 08:00 98.2 F 71 18 100/59 98 05/21/22 02:00 97.3 F L 47 L 16 104/56 98 05/20/22 20:00 97.4 F L 60 17 96/57 97 05/20/22 19:55 16 05/20/22 16:26 72 16 119/78 98 05/20/22 16:11 72 16 129/77 99 05/20/22 15:56 97 F L 82 14 175/81 99 05/20/22 12:50 62 16 119/84 99 05/20/22 11:50 97.0 F L 62 16 114/75 99 Intake and Output 05/20/22 05/21/22 05/21/22 22:59 06:59 14:59 Intake Total 0 Output Total 315 150 Balance -315 -150 Intake: IV 0 Output: Drainage 40 150 Left Knee 40 150 Urine 225 Estimated Blood Loss 50 Other: Voiding Method Toilet # Voids 4 Weight 79.2 kg Results CBC & Chem 7: 05/21/22 05:40 Labs: Abnormal Lab Results - Last 24 Hours (Table) 05/21/22 Range/Units 05:40 WBC 13.12 H (4.50-10.00) X 10*3/uL RBC 3.73 L (4.40-5.60) X 10*6/uL Hgb 11.5 L (13.0-17.0) g/dL Hct 35.2 L (39.6-50.0) % Immature Gran # 0.05 H (0.00-0.04) X 10*3/uL Neutrophils # 10.54 H (1.80-7.70) X 10*3/uL Monocytes # 1.06 H (0.20-1.00) X 10*3/uL Eosinophils # 0.01 L (0.04-0.35) X 10*3/uL
== END 2022-05-21 13:24 | disposition home health service (06) ==
LOC: OR 11:12 → 4SSUR 15:45 → OR 05-21 08:44
PROVIDERS: ADMIT Orthopaedic Surgery; ATTEND Orthopaedic Surgery
DX: M17.32 Unilateral post-traumatic osteoarthritis, left knee (principal); M25.762 Osteophyte, left knee; D72.829 Elevated white blood cell count, unspecified; G89.18 Other acute postprocedural pain; K21.9 Gastro-esophageal reflux disease without esophagitis; I10 Essential (primary) hypertension; F17.210 Nicotine dependence, cigarettes, uncomplicated; Z85.47 Personal history of malignant neoplasm of testis; Z85.828 Personal history of other malignant neoplasm of skin; Z80.42 Family history of malignant neoplasm of prostate; Z79.82 Long term (current) use of aspirin; Z88.0 Allergy status to penicillin
CPT/HCPCS: 94760; 97161; 64447; 64999; 76942; 85025; 73560; 27447; G0378; C1776 ×2; C1713; J2250; J0171; J0330; J1100; J2710; J0690 ×2; J2405; J3010; J1885 ×2; J1170 ×2; J2795; J2370; J2704; J0735; J2001

== ENCOUNTER 2022-07-05 21:29 | Emergency (ER) | payer BC, OTHER ==
[2022-07-05 21:48] VITALS: TEMP 98.1
[2022-07-05] MEDS ORDERED: SODIUM CHLORIDE 0.9% 1,000 ML IV STA (21:51)
[2022-07-05] MEDS ORDERED: MORPHINE SULFATE 4 MG/ML SYRINGE IV STA (21:51)
--- NOTE | 2022-07-05 21:53 | ED ---
Recheck HPI - General Chief Complaint: Extremity Injury, Lower Stated Complaint: Left Knee Pain Time Seen by Provider: 07/05/22 21:37 Source: EMS, RN notes reviewed, old records reviewed Mode of arrival: EMS Limitations: no limitations - History of Present Illness Initial Comments: This is a 61-year-old male to the ER for evaluation. Patient presents today for evaluation of recurrent left knee pain. Recent postoperative left knee replacement. This was done by Dr. Garcia. At this hospital. Patient concern for clot denies while denies fever denies redness pain is worse worsens with movement worse with straightening worse with bending. Pain is in his upper calf to lower thigh currently. No other complaints MD Complaint: medication refill request, other (Worsening pain in a postop.) -: days(s) Returns Today for: persistent/worsening pain related to initial visit Context: planned re-check Associated Symptoms: none Treatments Prior to Arrival: Given Pain Meds on - Related Data Previous Rx's Medication Instructions Recorded Aspirin 81 mg PO BID 30 Days #60 tab 05/21/22 Diclofenac Sodium [Voltaren] 75 mg PO BID 30 Days #60 tab 05/21/22 Docusate [Colace] 100 mg PO BID #60 capsule 05/21/22 Doxycycline Monohydrate 100 mg PO BID 14 Days #28 cap 05/21/22 HYDROcodone/APAP 5-325MG [Madeline 1 - 2 tab PO Q6HR PRN 7 Days #32 05/21/22 5-325] tab Omeprazole 40 mg PO DAILY 30 Days #30 cap 05/21/22 Allergies Allergy/AdvReac Type Severity Reaction Status Date / Time Penicillins Allergy Unknown Verified 07/05/22 21:45 Childhood Review of Systems ROS Statement: Those systems with pertinent positive or pertinent negative responses have been documented in the HPI. ROS Other: All systems not noted in ROS Statement are negative. Past Medical History Past Medical History: Cancer, Chest Pain / Angina, GERD/Reflux, Hypertension, Osteoarthritis (OA) Additional Past Medical History / Comment(s): Hx testicular cancer, skin cancer, diverticulitis, "irregular heartbeat", recent episode of chest pain and was diagnosed with a hiatal hernia. History of Any Multi-Drug Resistant Organisms: None Reported Date of last positivie culture/infection: aug 2021 MDRO Source:: axilla Past Surgical History: Orthopedic Surgery Additional Past Surgical History / Comment(s): Right testicle removed, left knee surgery, left knee arthroscopy, right elbow surgery, skin cancer removed from back and scalp, COLONOSCOPY., EGD Past Anesthesia/Blood Transfusion Reactions: No Reported Reaction Past Psychological History: No Psychological Hx Reported Smoking Status: Current every day smoker Past Alcohol Use History: Occasional Past Drug Use History: None Reported - Past Family History Mother Family Medical History: No Reported History Father Family Medical History: Cancer Additional Family Medical History / Comment(s): prostate cancer General Exam Limitations: no limitations General appearance: alert, in no apparent distress Head exam: Present: atraumatic, normocephalic, normal inspection Eye exam: Present: normal appearance, PERRL, EOMI. Absent: scleral icterus, conjunctival injection, periorbital swelling ENT exam: Present: normal exam, mucous membranes moist Neck exam: Present: normal inspection. Absent: tenderness, meningismus, lymphadenopathy Respiratory exam: Present: normal lung sounds bilaterally. Absent: respiratory distress, wheezes, rales, rhonchi, stridor Cardiovascular Exam: Present: regular rate, normal rhythm, normal heart sounds. Absent: systolic murmur, diastolic murmur, rubs, gallop, clicks GI/Abdominal exam: Present: soft, normal bowel sounds. Absent: distended, tenderness, guarding, rebound, rigid Extremities exam: Present: normal inspection, full ROM, normal capillary refill. Absent: tenderness, pedal edema, joint swelling, calf tenderness Back exam: Present: normal inspection Neurological exam: Present: alert, oriented X3, CN II-XII intact Psychiatric exam: Present: normal affect, normal mood Skin exam: Present: warm, dry, intact, normal color. Absent: rash Course Vital Signs 07/05/22 07/05/22 21:45 22:13 Temperature 98.1 F Pulse Rate 88 65 Respiratory 15 18 Rate Blood Pressure 151/70 145/94 O2 Sat by Pulse 100 97 Oximetry - Reevaluation(s) Reevaluation #1: 07/05/22 22:53 Medical records reviewed Reevaluation #2: 07/05/22 22:53 Patient's pain is improved Reevaluation #3: 07/05/22 22:53 patient informed results and questions are answered Reevaluation #4: 07/05/22 22:17 Differential leg Pain: Strain, postoperative pain postoperative infection cellulitis DVT and Yang's cyst Reevaluation #5: 07/05/22 22:17 Was pt. sent in by a medical professional or institution? @ -no Did you speak to anyone other than the patient for history? @ -no Did you review nursing and triage notes? @ -agree Were old charts reviewed? @ -no Differential Diagnosis? @ -prior EKG interpreted by me (3pts min.)? @ -[none] X-rays interpreted by me (1pt min.)? @ -[none] CT interpreted by me (1pt min.)? @ -[none] U/S interpreted by me (1pt. min.)? @ -[none] What testing was considered but not performed? (CT, X-rays, U/S, labs)? Why? @ no What meds were considered but not given? Why? @ -[none] Did you discuss the management of the patient with other professionals? @ -no Did you reconcile home meds? @ -[none] Was smoking cessation discussed for >3mins.? @ -[none] Was critical care preformed (if so, how long)? @ -[none] Were there social determinants of health that impacted care today? How? (Homelessness, low income, unemployed, alcoholism, drug addiction, transportation, low edu. Level, literacy, decrease access to med. care, custodial, rehab)? @ -no Was there de-escalation of care discussed even if they declined? (Discuss DNR or withdrawal of care, Hospice)? @ -no What co-morbidities impacted this encounter? (DM, HTN, Smoking, COPD, CAD, Cancer, CVA, Hep., AIDS, mental health diagnosis, sleep apnea, morbid obesity)? @ -no Was patient admitted / discharged? @ -dc Undiagnosed new problem with uncertain prognosis? @ -[none] Drug Therapy requiring intensive monitoring for toxicity (Heparin, Nitro, Insulin, Cardizem)? @ -[none] Were any procedures done? @ -[none] Diagnosis/symptom? @ -[default] Acute, or Chronic, or Acute on Chronic? @ -[default] Uncomplicated (without systemic symptoms) or Complicated (systemic symptoms)? @ -[default] Side effects of treatment? @ -[none] Exacerbation, Progression, or Severe Exacerbation] @ -[no] Poses a threat to life or bodily function? @ -[no] 07/15/22 01:25 Medical Decision Making - Medical Decision Making 61 male for postoperative pain concern for blood clot no blood clot is found, patient's pain is controlled and he feels well with discharge - Lab Data Result diagrams: 07/05/22 22:12 07/05/22 22:12 Lab Results 07/05/22 07/05/22 07/05/22 Range/Units 22:12 22:12 22:12 WBC 7.0 (3.8-10.6) k/uL RBC 4.42 (4.30-5.90) m/uL Hgb 13.8 (13.0-17.5) gm/dL Hct 40.4 (39.0-53.0) % MCV 91.5 (80.0-100.0) fL MCH 31.2 (25.0-35.0) pg MCHC 34.1 (31.0-37.0) g/dL RDW 12.5 (11.5-15.5) % Plt Count 261 (150-450) k/uL MPV 8.3 Neutrophils % 58 % Lymphocytes % 29 % Monocytes % 6 % Eosinophils % 3 % Basophils % 1 % Neutrophils # 4.1 (1.3-7.7) k/uL Lymphocytes # 2.1 (1.0-4.8) k/uL Monocytes # 0.4 (0-1.0) k/uL Eosinophils # 0.2 (0-0.7) k/uL Basophils # 0.1 (0-0.2) k/uL ESR 3 (0-15) mm/hr PT 9.5 (9.0-12.0) sec INR 0.9 (<1.2) APTT 22.9 (22.0-30.0) sec D-Dimer 1.39 H (<0.60) mg/L FEU Sodium 138 (137-145) mmol/L Potassium 4.3 (3.5-5.1) mmol/L Chloride 107 (98-107) mmol/L Carbon Dioxide 25 (22-30) mmol/L Anion Gap 6 mmol/L BUN 20 (9-20) mg/dL Creatinine 0.96 (0.66-1.25) mg/dL Est GFR (CKD-EPI)AfAm >90 (>60 ml/min/1.73 sqM) Est GFR (CKD-EPI)NonAf 87 (>60 ml/min/1.73 sqM) Glucose 135 H (74-99) mg/dL Calcium 8.8 (8.4-10.2) mg/dL Phosphorus 4.1 (2.5-4.5) mg/dL Magnesium 1.9 (1.6-2.3) mg/dL Total Bilirubin 0.2 (0.2-1.3) mg/dL AST 24 (17-59) U/L ALT 22 (4-49) U/L Alkaline Phosphatase 97 (38-126) U/L Troponin I (0.000-0.034) ng/mL C-Reactive Protein 0.5 (<1.0) mg/dL NT-Pro-B Natriuret Pep pg/mL Total Protein 6.1 L (6.3-8.2) g/dL Albumin 3.8 (3.5-5.0) g/dL 07/05/22 07/05/22 Range/Units 22:12 22:12 WBC (3.8-10.6) k/uL RBC (4.30-5.90) m/uL Hgb (13.0-17.5) gm/dL Hct (39.0-53.0) % MCV (80.0-100.0) fL MCH (25.0-35.0) pg MCHC (31.0-37.0) g/dL RDW (11.5-15.5) % Plt Count (150-450) k/uL MPV Neutrophils % % Lymphocytes % % Monocytes % % Eosinophils % % Basophils % % Neutrophils # (1.3-7.7) k/uL Lymphocytes # (1.0-4.8) k/uL Monocytes # (0-1.0) k/uL Eosinophils # (0-0.7) k/uL Basophils # (0-0.2) k/uL ESR (0-15) mm/hr PT (9.0-12.0) sec INR (<1.2) APTT (22.0-30.0) sec D-Dimer (<0.60) mg/L FEU Sodium (137-145) mmol/L Potassium (3.5-5.1) mmol/L Chloride (98-107) mmol/L Carbon Dioxide (22-30) mmol/L Anion Gap mmol/L BUN (9-20) mg/dL Creatinine (0.66-1.25) mg/dL Est GFR (CKD-EPI)AfAm (>60 ml/min/1.73 sqM) Est GFR (CKD-EPI)NonAf (>60 ml/min/1.73 sqM) Glucose (74-99) mg/dL Calcium (8.4-10.2) mg/dL Phosphorus (2.5-4.5) mg/dL Magnesium (1.6-2.3) mg/dL Total Bilirubin (0.2-1.3) mg/dL AST (17-59) U/L ALT (4-49) U/L Alkaline Phosphatase (38-126) U/L Troponin I <0.012 (0.000-0.034) ng/mL C-Reactive Protein (<1.0) mg/dL NT-Pro-B Natriuret Pep 38 pg/mL Total Protein (6.3-8.2) g/dL Albumin (3.5-5.0) g/dL - Radiology Data Radiology results: report reviewed (Ultrasound knee is negative for DVT), image reviewed Disposition Clinical Impression: Postoperative pain, Left knee pain Disposition: HOME SELF-CARE Condition: Good Instructions (If sedation given, give patient instructions): Knee Pain (ED) Is patient prescribed a controlled substance at d/c from ED?: No Referrals: Eric Mcduffie MD [REFERRING] - 1-2 days Jaylon Garcia MD [Medical Doctor] - 1-2 days Time of Disposition: 23:45
[2022-07-05 22:14] VITALS: BP 145/94; PULSE 65; RESP 18
[2022-07-05 22:25] LABS: Basophils # (A) 0.1 k/uL (0-0.2); Basophils % (A) 1 %; Eosinophils # (A) 0.2 k/uL (0-0.7); Eosinophils % (A) 3 %; HCT 40.4 % (39.0-53.0); HGB 13.8 gm/dL (13.0-17.5); Lymphocytes # (A) 2.1 k/uL (1.0-4.8); Lymphocytes % (A) 29 %; MCH 31.2 pg (25.0-35.0); MCHC 34.1 g/dL (31.0-37.0); MCV 91.5 fL (80.0-100.0); Mean Platelet Volume 8.3; Monocytes # (A) 0.4 k/uL (0-1.0); Monocytes % (A) 6 %; Neutrophils # (A) 4.1 k/uL (1.3-7.7); Neutrophils % (A) 58 %; Platelet Count 261 k/uL (150-450); RBC 4.42 m/uL (4.30-5.90); RDW 12.5 % (11.5-15.5)
[2022-07-05 22:39] LABS: ALT 22 U/L (4-49); AST 24 U/L (17-59); African American GFR (CKD) >90 (>60 ml/min/1.73 sqM); Albumin 3.8 g/dL (3.5-5.0); Alkaline Phosphatase 97 U/L (38-126); Anion Gap 6 mmol/L; Blood Urea Nitrogen 20 mg/dL (9-20); C Reactive Protein 0.5 mg/dL (<1.0); Calcium 8.8 mg/dL (8.4-10.2); Carbon Dioxide 25 mmol/L (22-30); Chloride 107 mmol/L (98-107); Glucose 135 mg/dL (74-99); INR 0.9 (<1.2); Magnesium 1.9 mg/dL (1.6-2.3); Non-African American GFR(CKD) 87 (>60 ml/min/1.73 sqM); Partial Thromboplastin Time 22.9 sec (22.0-30.0); Phosphorus 4.1 mg/dL (2.5-4.5); Potassium 4.3 mmol/L (3.5-5.1); Prothrombin Time 9.5 sec (9.0-12.0); Sodium 138 mmol/L (137-145); Total Bilirubin 0.2 mg/dL (0.2-1.3); Total Protein 6.1 g/dL (6.3-8.2)
--- NOTE | 2022-07-05 22:40 | XR ---
EXAMINATION TYPE: XR knee complete LT DATE OF EXAM: 07/05/2022 COMPARISON: 05/20/2022 HISTORY: Pain TECHNIQUE: 3 views FINDINGS: Components appear there is left knee prosthesis. Components appear in anatomic position. No fracture seen. IMPRESSION: No fracture. No adverse change compared to old exam.
--- NOTE | 2022-07-05 23:00 | US ---
EXAMINATION TYPE: US venous doppler duplex LE LT DATE OF EXAM: 07/05/2022 10:48 PM COMPARISON: NONE CLINICAL HISTORY: Left leg pain, post op knee surgery 6 weeks ago SIDE PERFORMED: Left TECHNIQUE: The lower extremity deep venous system is examined utilizing real time linear array sonog jonathan with graded compression, doppler sonography and color-flow sonography. VESSELS IMAGED: Common Femoral Vein Deep Femoral Vein Greater Saphenous Vein * Femoral Vein Popliteal Vein Small Saphenous Vein * Proximal Calf Veins (* superficial vessels) Left Leg: Negative for DVT IMPRESSION: No evidence of deep vein thrombosis in the left leg.
[2022-07-05 23:21] LABS: Erythrocyte Sedimentation Rate 3 mm/hr (0-15)
== END 2022-07-05 23:47 | disposition home or self-care (01) ==
LOC: EC 21:29
DX: G89.18 Other acute postprocedural pain (principal); K21.9 Gastro-esophageal reflux disease without esophagitis; I10 Essential (primary) hypertension; M19.90 Unspecified osteoarthritis, unspecified site; F17.200 Nicotine dependence, unspecified, uncomplicated; Z79.1 Long term (current) use of non-steroidal anti-inflammatories (NSAID); Z79.899 Other long term (current) drug therapy; Z79.82 Long term (current) use of aspirin; Z88.0 Allergy status to penicillin
CPT/HCPCS: 36415; 85379; 83880; 80053; 85652; 83735; 84100; 84484; 85025; 85610; 85730; 86140; 73562; 93971; 99285; 96374; 96361; J2270

== ENCOUNTER → 2022-12-25 | Outpatient (CLI) | payer BC, OTHER ==
--- NOTE | 2022-12-27 23:03 | CTL ---
EXAMINATION TYPE: CT Low Dose Lung DATE OF EXAM ORDERED: 12/25/2022 HISTORY: Long-term tobacco use. Lung cancer screening CT DLP: 104.[address] CTDI: 2.6 mGy Automated exposure control for dose reduction was used. SCREENING VISIT: Baseline COMPARISON: None TECHNIQUE: Low dose computed tomography scan was performed through the chest at 1 mm thick sections a nd reconstructed images in multiple planes at 1 mm and [address] DIAGNOSTIC QUALITY: Satisfactory FINDINGS: LUNG NODULES: Present, detailed below: Occasional micronodule, for reference 2 to 3 mm peripheral lef t lower lobe nodule axial image 242. No greater than 5 mm pulmonary nodules. LUNGS: COPD: Severity: Mild Fibrosis: Severity: None Lymph nodes: None Other findings: None RIGHT PLEURAL SPACE: Effusion: None Calcification: None Thickening: None Pneumothorax: None LEFT PLEURAL SPACE: Effusion: None Calcification: None Thickening: None Pneumothorax: None HEART: Heart Size: Normal Coronary Calcification: Mild Pericardial Effusion: None OTHER FINDINGS: Upper abdomen: None Bony thorax: Slight scoliotic curvature with multilevel spurring. Supraclavicular region: None Other: None IMPRESSION: Occasional micronodule. No significant greater than [address]. [address] LUNG RAD AND CT CHEST RECOMMENDATION: Lung-Rad 2 Benign Appearance or Behavior: Continue annual sc reening with LDCT in 12 months. S Modifier (other clinically significant findings): None
== END | disposition home or self-care (01) ==
LOC: RADCTMAIN 14:34
PROVIDERS: ATTEND Family Medicine
DX: Z12.2 Encounter for screening for malignant neoplasm of respiratory organs (principal); J44.9 Chronic obstructive pulmonary disease, unspecified; R91.1 Solitary pulmonary nodule; Z87.891 Personal history of nicotine dependence
CPT/HCPCS: 71271

== ENCOUNTER 2023-07-15 07:07 | Day surgery (SDC) | payer BC, OTHER ==
[2023-07-12 16:01] VITALS: BMI 26.6
[~2023-07-15 07:07] MED LIST changes: -ACETAMINOPHEN TAB 500 MG TAB PO PRN; -DEXAMETHASONE SOD PHOSPHATE 10 MG/ML 1 ML VIAL IV PRN; -DEXAMETHASONE SOD PHOSPHATE 4 MG/ML 1 ML VIAL IV ONE; -DOCUSATE 100 MG CAP PO PRN; -FAMOTIDINE 20 MG/2 ML VIAL IVP PRN; -HYDROmorphone 0.5 MG/0.5 ML SYRINGE IVP PRN; -KETOROLAC 15 MG/ML 1 ML VIAL IVP PRN; +LACTATED RINGERS 1,000 ML IV SCH; -MIDAZOLAM 2 MG/2 ML VIAL IV PRN; -ONDANSETRON 4 MG/2 ML VIAL IVP ONE; -ONDANSETRON 4 MG/2 ML VIAL IVP PRN; -ROPIVACAINE 246.25 MG, EPINEPHrine 0.5 MG, KETOROLAC (30 mg/mL) 30 MG, cloNIDine HCL/PF... MISCELLANE PRN; -TRANEXAMIC ACID IN NACL,ISO-OS 1,000 MG in SALINE 1 100ML.BAG IVPB PRN; -oxyCODONE ER 10 MG TAB.ER.12H PO PRN
[2023-07-15 07:38] VITALS: TEMP 97.2
[2023-07-15] MEDS ORDERED: PROPOFOL 10 MG/ML 20 ML VIAL IV ONE (08:02)
--- NOTE | 2023-07-15 08:07 | P.GSHP ---
History of Present Illness H&P Date: 07/15/23 Chief Complaint: Screening colonoscopy 8-year-old male presents today for screening colonoscopy. Patient denies a significant GI complaints. Past Medical History Past Medical History: Cancer, Chest Pain / Angina, GERD/Reflux, Hypertension, Osteoarthritis (OA) Additional Past Medical History / Comment(s): Hx testicular cancer, skin cancer, diverticulitis, "irregular heartbeat", recent episode of chest pain and was diagnosed with a hiatal hernia. History of Any Multi-Drug Resistant Organisms: MRSA Date of last positivie culture/infection: 2020 MDRO Source:: lump under armpits Past Surgical History: Orthopedic Surgery Additional Past Surgical History / Comment(s): Right testicle removed, left knee surgery, left knee arthroscopy, right elbow surgery, skin cancer removed from back and scalp, COLONOSCOPY., EGD, hiatal hernia suregery Past Anesthesia/Blood Transfusion Reactions: No Reported Reaction Additional Past Anesthesia/Blood Transfusion Reaction / Comment(s): no blood transfusion Smoking Status: Current every day smoker - Past Family History Mother Family Medical History: No Reported History Father Family Medical History: Cancer Additional Family Medical History / Comment(s): prostate cancer Medications and Allergies Home Medications Medication Instructions Recorded Confirmed Type Docusate [Colace] 100 mg PO BID #60 capsule 05/21/22 07/12/23 Rx HYDROcodone/APAP 5-325MG [[place] 1 - 2 tab PO Q6HR PRN 7 Days #32 05/21/2202/25 Rx 5-325] tab Omeprazole 40 mg PO DAILY 30 Days #30 cap 05/21/22 07/12/23 Rx Allergies Allergy/AdvReac Type Severity Reaction Status Date / Time Penicillins Allergy Unknown Verified 07/12/23 15:50 Childhood Surgical - Exam Vital Signs Temp Pulse Resp BP Pulse Ox 97.2 F L 80 18 119/84 97 07/15/23 07:27 07/15/23 07:27 07/15/23 07:27 07/15/23 07:27 07/15/23 07:27 - General well developed, well nourished, no distress - Eyes PERRL - ENT normal pinna - Neck no masses - Respiratory normal expansion - Cardiovascular Rhythm: regular - Abdomen Abdomen: soft, non tender Assessment and Plan Assessment: Perform screening colonoscopy.
--- NOTE | 2023-07-15 08:41 | P.OP ---
Date of Procedure: 07/15/23 Preoperative Diagnosis: Screening colonoscopy Postoperative Diagnosis: Diverticulosis Procedure(s) Performed: Colonoscopy Anesthesia: MAC Surgeon: Miah Hensley Pathology: none sent Condition: stable Disposition: PACU Description of Procedure: The patient's placed on the endoscopy table in the lateral position. He received IV sedation. Digital rectal exam was performed. This revealed no abnormalities. Flexible colonoscope was then placed patient anus passed throughout the entire colon. The ileocecal valve was visualized. The cecum, ascending and transverse colon appeared normal. The descending and; was mild diverticular changes. Scope was then brought back the rectum and this appeared normal. Scope withdrawn for patient.
[2023-07-15 08:54] VITALS: BP 132/78; PULSE 78; RESP 18
== END 2023-07-15 08:54 | disposition home or self-care (01) ==
LOC: ORWHC2ENDO 07:07
PROVIDERS: ATTEND Surgery
DX: Z12.11 Encounter for screening for malignant neoplasm of colon (principal); I20.9 Angina pectoris, unspecified; I10 Essential (primary) hypertension; K21.9 Gastro-esophageal reflux disease without esophagitis; M19.90 Unspecified osteoarthritis, unspecified site; I49.9 Cardiac arrhythmia, unspecified; K44.9 Diaphragmatic hernia without obstruction or gangrene; F17.200 Nicotine dependence, unspecified, uncomplicated; K57.92 Diverticulitis of intestine, part unspecified, without perforation or abscess without bleeding; Z85.47 Personal history of malignant neoplasm of testis; Z86.14 Personal history of Methicillin resistant Staphylococcus aureus infection; Z80.9 Family history of malignant neoplasm, unspecified; Z79.899 Other long term (current) drug therapy; Z88.0 Allergy status to penicillin; F12.90 Cannabis use, unspecified, uncomplicated; Z96.652 Presence of left artificial knee joint; Z90.79 Acquired absence of other genital organ(s); Z98.890 Other specified postprocedural states
CPT/HCPCS: 45378; J2704

== ENCOUNTER → 2023-12-07 | Outpatient (CLI) | payer BC ==
[2023-12-07 15:13] LABS: HCT 41.5 % (39.6-50.0); HGB 14.1 g/dL (13.0-17.0); MCH 30.7 pg (27.0-32.0); MCV 90.2 FL (80.0-97.0); Mean Platelet Volume 9.9 FL (9.5-12.2); NRBC Per 100 WBC 0 X 10*3/uL (0.00-0.01); Platelet Count 243 X 10*3/uL (140-440); RDW 12.9 % (11.5-14.5); WBC 5.87 X 10*3/uL (4.50-10.00)
[2023-12-07 16:08] LABS: Erythrocyte Sedimentation Rate 6 mm/Hr (0-20)
== END | disposition home or self-care (01) ==
LOC: LABWHC1 12:11
PROVIDERS: ATTEND Orthopaedic Surgery Hand Surgery
DX: Z48.89 Encounter for other specified surgical aftercare (principal); M19.121 Post-traumatic osteoarthritis, right elbow; G56.01 Carpal tunnel syndrome, right upper limb; G56.22 Lesion of ulnar nerve, left upper limb; Z96.621 Presence of right artificial elbow joint
CPT/HCPCS: 36415; 83520; 85027; 85379; 85652; 86140